=== PATIENT | male | born 1970 | race Caucasian/White ===

== ENCOUNTER 2020-01-31 07:21 | Outpatient (REF) | payer BC, SELFPAY ==
[2020-01-31 11:25] LABS: Hematocrit 44.4 % (42-52); Hemoglobin 15.5 g/dl (14.0-18.0); Mean Corpuscular HGB Conc 34.9 g/dl (31.0-36.0); Mean Corpuscular Hemoglobin 32.1 pg (27.0-33.0); Mean Corpuscular Volume 91.9 fL (80-98); Mean Platelet Volume 11.8 fL (9.4-12.4); Platelet Count 173 X10*3/uL (160-400); Red Blood Count 4.83 X10*6/uL (4.60-5.80); Red Cell Distribution Width 12.6 % (11.0-16.0); White Blood Count 6.3 X10*3/uL (4.8-10.8)
[2020-01-31 11:50] LABS: Cholesterol 210 mg/dL; HDL Cholesterol 37 mg/dL; LDL Cholesterol Calculated 142 mg/dl; Triglycerides 156 mg/dL
[2020-01-31 12:12] LABS: Prostate Specific Antigen Scr 0.53 ng/mL (<0.05-4.0)
== END 2020-01-31 07:22 | disposition home or self-care (01) ==
LOC: HO.HMGCLDS 07:21
PROVIDERS: PCP Internal Medicine; Visit Provider Internal Medicine
DX: Z00.00 Encounter for general adult medical examination without abnormal findings (principal); E78.2 Mixed hyperlipidemia; Z12.5 Encounter for screening for malignant neoplasm of prostate
CPT/HCPCS: 36415; 80061; 84153; 85027

== ENCOUNTER 2020-05-01 08:08 | Outpatient (REF) | payer BC, SELFPAY ==
[2020-05-01 11:00] LABS: Anion Gap 11 (12-20); Blood Urea Nitrogen 16 mg/dL (9-16); Carbon Dioxide 29 mmol/L (22-29); Chloride 104 mmol/L (96-108); Estimated Glomerular Filt Rate 50; Potassium 4.1 mmol/l (3.3-5.1); Sodium 140 mmol/L (135-145)
[2020-05-01 11:17] LABS: Creatinine Urine 101.68 mg/dL; Total Protein Urine Random < 7 mg/dL (<12)
== END 2020-05-01 08:09 | disposition home or self-care (01) ==
LOC: HO.10HDL 08:08
PROVIDERS: Visit Provider Internal Medicine Hypertension Specialist
DX: N03.8 Chronic nephritic syndrome with other morphologic changes (principal)
CPT/HCPCS: 36415; 80051; 82565; 84156; 84520

== ENCOUNTER 2020-06-12 07:36 | Outpatient (REF) | payer BC, SELFPAY ==
[2020-06-12 10:14] LABS: MANUAL DIFF FLAG NO
[2020-06-12 10:19] LABS: Basophils Percent Auto 0.6 % (0-2); Eosinophils Absolute Auto 0.2 X10*3/uL (0.0-0.4); Eosinophils Percent Auto 2.3 % (0-4); Hematocrit 44.1 % (42-52); Hemoglobin 15.4 g/dl (14.0-18.0); Imm Gran Abs Auto 0.03 X10*3/uL (0.00-0.03); Imm Gran Pct Auto 0.5 % (0.0-0.4); Lymphocytes Absolute Auto 1.5 X10*3/uL (1.2-4.9); Lymphocytes Percent Auto 23.9 % (20-40); Mean Corpuscular HGB Conc 34.9 g/dl (31.0-36.0); Mean Corpuscular Hemoglobin 31.6 pg (27.0-33.0); Mean Corpuscular Volume 90.4 fL (80-98); Monocytes Absolute Auto 0.5 X10*3/uL (0.1-1.2); Monocytes Percent Auto 8.3 % (2-11); Neutrophils Absolute Auto 4.1 X10*3/uL (2.0-8.3); Neutrophils Percent Auto 64.4 % (45-73); Platelet Count 180 X10*3/uL (160-400); Red Blood Count 4.88 X10*6/uL (4.60-5.80); Red Cell Distribution Width 12.4 % (11.0-16.0); White Blood Count 6.4 X10*3/uL (4.8-10.8)
[2020-06-12 10:44] LABS: Albumin Level 4.7 g/dL (3.5-5.0); Anion Gap 13 (12-20); Blood Urea Nitrogen 15 mg/dL (9-16); Calcium 9.4 mg/dL (8.4-10.2); Carbon Dioxide 28 mmol/L (22-29); Chloride 100 mmol/L (96-108); Estimated Glomerular Filt Rate 53; Sodium 137 mmol/L (135-145)
[2020-06-12 10:45] LABS: Creatinine Urine 52.37 mg/dL; Total Protein Urine Random < 7 mg/dL (<12)
[2020-06-12 10:53] LABS: Glucose Urine UA NEG (NEG); Leukocyte Esterase Urine NEG (NEG); Nitrite Urine NEG (NEG); Urine Blood NEG (NEG); Urine Ketones NEG (NEG); Urine Protein NEG (NEG-TRACE)
[2020-06-12 10:54] LABS: Appearance Urine CLEAR; Color Urine STRAW
== END 2020-06-12 07:37 | disposition home or self-care (01) ==
LOC: HO.10HDL 07:36
PROVIDERS: Visit Provider Internal Medicine Hypertension Specialist
DX: N28.9 Disorder of kidney and ureter, unspecified (principal); N03.8 Chronic nephritic syndrome with other morphologic changes
CPT/HCPCS: 36415; 80051; 81003; 82040; 82310; 82565; 83735; 84100; 84156; 84520; 85025

== ENCOUNTER 2020-07-17 07:33 | Outpatient (REF) | payer BC, SELFPAY ==
[2020-07-17 10:05] LABS: MANUAL DIFF FLAG NO
[2020-07-17 10:16] LABS: Basophils Percent Auto 0.5 % (0-2); Eosinophils Absolute Auto 0.2 X10*3/uL (0.0-0.4); Eosinophils Percent Auto 3.5 % (0-4); Hematocrit 41.7 % (42-52); Hemoglobin 14.6 g/dl (14.0-18.0); Imm Gran Abs Auto 0.02 X10*3/uL (0.00-0.03); Imm Gran Pct Auto 0.3 % (0.0-0.4); Lymphocytes Absolute Auto 1.5 X10*3/uL (1.2-4.9); Lymphocytes Percent Auto 26.5 % (20-40); Mean Corpuscular Volume 91.4 fL (80-98); Mean Platelet Volume 11.8 fL (9.4-12.4); Monocytes Absolute Auto 0.5 X10*3/uL (0.1-1.2); Monocytes Percent Auto 8.3 % (2-11); Neutrophils Absolute Auto 3.5 X10*3/uL (2.0-8.3); Neutrophils Percent Auto 60.9 % (45-73); Platelet Count 179 X10*3/uL (160-400); Red Blood Count 4.56 X10*6/uL (4.60-5.80); Red Cell Distribution Width 12.5 % (11.0-16.0); White Blood Count 5.8 X10*3/uL (4.8-10.8)
[2020-07-17 10:23] LABS: Glucose Urine UA NEG (NEG); Leukocyte Esterase Urine NEG (NEG); Nitrite Urine NEG (NEG); Specific Gravity - Urine <= 1.005 (1.005-1.025); Urine Blood NEG (NEG); Urine Ketones NEG (NEG); Urine Protein NEG (NEG-TRACE)
[2020-07-17 10:46] LABS: Appearance Urine CLEAR; Color Urine YELLOW
[2020-07-17 10:55] LABS: Albumin Level 4.4 g/dL (3.5-5.0); Anion Gap 16 (12-20); Blood Urea Nitrogen 16 mg/dL (9-16); Calcium 8.9 mg/dL (8.4-10.2); Carbon Dioxide 25 mmol/L (22-29); Chloride 103 mmol/L (96-108); Estimated Glomerular Filt Rate 56; Magnesium 2.2 mg/dL (1.6-2.6); Phosphorus 2.7 mg/dL (2.7-4.5); Potassium 4.1 mmol/L (3.3-5.1); Sodium 140 mmol/L (135-145)
[2020-07-17 11:18] LABS: Creatinine Urine 39.02 mg/dL; Total Protein Urine Random < 7 mg/dL (<12)
== END 2020-07-17 07:34 | disposition home or self-care (01) ==
LOC: HO.10HDL 07:33
PROVIDERS: Visit Provider Internal Medicine Hypertension Specialist
DX: N28.9 Disorder of kidney and ureter, unspecified (principal); N03.8 Chronic nephritic syndrome with other morphologic changes
CPT/HCPCS: 36415; 80051; 81003; 82040; 82310; 82565; 83735; 84100; 84156; 84520; 85025

== ENCOUNTER 2020-11-06 07:15 | Outpatient (REF) | payer BC, SELFPAY ==
[2020-11-06 11:19] LABS: Anion Gap 15 (12-20); Blood Urea Nitrogen 13 mg/dL (9-16); Calcium 9.4 mg/dL (8.4-10.2); Carbon Dioxide 26 mmol/L (22-29); Chloride 103 mmol/L (96-108); Estimated Glomerular Filt Rate 54; Potassium 4.5 mmol/L (3.3-5.1); Sodium 139 mmol/L (135-145)
[2020-11-06 11:45] LABS: Creatinine Urine 49.06 mg/dL; Total Protein Urine Random < 7 mg/dL (<12)
== END 2020-11-06 07:16 | disposition home or self-care (01) ==
LOC: HO.WFDLDS 07:15
PROVIDERS: PCP Internal Medicine; Visit Provider Internal Medicine Hypertension Specialist
DX: N18.1 Chronic kidney disease, stage 1 (principal)
CPT/HCPCS: 36415; 80051; 82310; 82565; 84156; 84520

== ENCOUNTER 2021-01-24 08:34 | Outpatient (REF) | payer BC, SELFPAY ==
[2021-01-24 13:16] LABS: Prostate Specific Antigen 0.48 ng/mL (<0.05-4.0)
[2021-01-24 13:20] LABS: Anion Gap 12 (12-20); Blood Urea Nitrogen 16 mg/dL (9-16); Calcium 9.3 mg/dL (8.4-10.2); Carbon Dioxide 26 mmol/L (22-29); Chloride 105 mmol/L (96-108); Cholesterol 207 mg/dL; Estimated Glomerular Filt Rate 56; HDL Cholesterol 37 mg/dL; LDL Cholesterol Calculated 145 mg/dl; Sodium 139 mmol/L (135-145); Triglycerides 126 mg/dL
[2021-01-24 13:25] LABS: Creatinine Urine 84.31 mg/dL; Protein/Creatinine Ratio, Ur 0.09 (<0.2); Total Protein Urine Random 8 mg/dL (<12)
== END 2021-01-24 08:35 | disposition home or self-care (01) ==
LOC: HO.HMGCLDS 08:34
PROVIDERS: PCP Internal Medicine; Visit Provider Internal Medicine Hypertension Specialist
DX: Z12.5 Encounter for screening for malignant neoplasm of prostate (principal); N18.1 Chronic kidney disease, stage 1
CPT/HCPCS: 36415; 80051; 80061; 82310; 82565; 84153; 84156; 84520

== ENCOUNTER 2021-06-18 07:51 | Outpatient (REF) | payer BC, SELFPAY ==
[2021-06-18 10:47] LABS: MANUAL DIFF FLAG NO
[2021-06-18 10:49] LABS: Basophils Percent Auto 0.6 % (0-2); Eosinophils Absolute Auto 0.3 X10*3/uL (0.0-0.4); Eosinophils Percent Auto 4.3 % (0-4); Hematocrit 42.5 % (42.0-52.0); Hemoglobin 14.5 g/dl (14.0-18.0); Imm Gran Abs Auto 0.02 X10*3/uL (0.00-0.03); Imm Gran Pct Auto 0.3 % (0.0-0.4); Lymphocytes Absolute Auto 1.6 X10*3/uL (1.2-4.9); Lymphocytes Percent Auto 24.9 % (20-40); Mean Corpuscular HGB Conc 34.1 g/dl (31.0-36.0); Mean Corpuscular Hemoglobin 31.4 pg (27.0-33.0); Mean Platelet Volume 11.9 fL (9.4-12.4); Monocytes Absolute Auto 0.7 X10*3/uL (0.1-1.2); Monocytes Percent Auto 10.4 % (2-11); Neutrophils Absolute Auto 3.8 x10*3/uL (2.0-8.3); Neutrophils Percent Auto 59.5 % (45-73); Platelet Count 171 X10*3/uL (160-400); Red Blood Count 4.62 X10*6/uL (4.60-5.80); Red Cell Distribution Width 12.8 % (11.0-16.0); White Blood Count 6.4 X10*3/uL (4.8-10.8)
[2021-06-18 11:06] LABS: Albumin Level 4.3 g/dL (3.5-5.0); Anion Gap 10 (12-20); Blood Urea Nitrogen 14 mg/dL (9-16); Calcium 9.3 mg/dL (8.4-10.2); Carbon Dioxide 29 mmol/L (22-29); Chloride 105 mmol/L (96-108); Estimated Glomerular Filt Rate 53; Magnesium 1.9 mg/dL (1.6-2.6); Phosphorus 2.9 mg/dL (2.7-4.5); Potassium 4.7 mmol/L (3.3-5.1); Sodium 139 mmol/L (135-145)
[2021-06-18 11:22] LABS: Appearance Urine CLEAR; Color Urine STRAW; Glucose Urine UA NEG (NEG); Leukocyte Esterase Urine NEG (NEG); Nitrite Urine NEG (NEG); Specific Gravity - Urine <= 1.005 (1.005-1.025); Urine Blood NEG (NEG); Urine Ketones NEG (NEG); Urine Protein NEG (NEG-TRACE)
[2021-06-18 12:23] LABS: Creatinine Urine 41.07 mg/dL; Total Protein Urine Random < 7 mg/dL (<12)
[2021-06-18 12:58] LABS: Renal w Reflex Lab Use Only Order verified
== END 2021-06-18 07:52 | disposition home or self-care (01) ==
LOC: HO.WFDLDS 07:51
PROVIDERS: Visit Provider Internal Medicine Hypertension Specialist
DX: N28.9 Disorder of kidney and ureter, unspecified (principal); N03.8 Chronic nephritic syndrome with other morphologic changes
CPT/HCPCS: 36415; 80051; 81003; 82040; 82310; 82565; 83735; 84100; 84156; 84520; 85025

== ENCOUNTER 2022-01-07 07:32 | Outpatient (REF) | payer BC, SELFPAY ==
[2022-01-07 12:05] LABS: Anion Gap 14 (12-20); Blood Urea Nitrogen 13 mg/dL (9-16); Calcium 9.7 mg/dL (8.4-10.2); Carbon Dioxide 28 mmol/L (22-29); Chloride 104 mmol/L (96-108); Estimated Glomerular Filt Rate 51; Potassium 4.5 mmol/L (3.3-5.1); Sodium 141 mmol/L (135-145)
[2022-01-07 12:25] LABS: Creatinine Urine 105.98 mg/dL; Total Protein Urine Random < 7 mg/dL (<12)
== END 2022-01-07 07:33 | disposition home or self-care (01) ==
LOC: HO.WFDLDS 07:32
PROVIDERS: Visit Provider Internal Medicine Hypertension Specialist
DX: N03.9 Chronic nephritic syndrome with unspecified morphologic changes (principal)
CPT/HCPCS: 36415; 80051; 82310; 82565; 84156; 84520

== ENCOUNTER 2022-01-27 08:59 | Outpatient (REF) | payer BC, SELFPAY ==
[2022-01-27 11:25] LABS: MANUAL DIFF FLAG NO
[2022-01-27 11:42] LABS: Basophils Absolute Auto 0.1 X10*3/uL (0.0-0.2); Basophils Percent Auto 0.8 % (0-2); Eosinophils Absolute Auto 0.3 X10*3/uL (0.0-0.4); Eosinophils Percent Auto 4.1 % (0-4); Hematocrit 43.9 % (42.0-52.0); Hemoglobin 15.3 g/dl (14.0-18.0); Imm Gran Abs Auto 0.02 X10*3/uL (0.00-0.03); Imm Gran Pct Auto 0.3 % (0.0-0.4); Lymphocytes Absolute Auto 1.6 X10*3/uL (1.2-4.9); Lymphocytes Percent Auto 25.3 % (20-40); Mean Corpuscular HGB Conc 34.9 g/dl (31.0-36.0); Mean Corpuscular Hemoglobin 31.7 pg (27.0-33.0); Mean Corpuscular Volume 91.1 fL (80.0-98.0); Mean Platelet Volume 11.8 fL (9.4-12.4); Monocytes Absolute Auto 0.6 X10*3/uL (0.1-1.2); Monocytes Percent Auto 9.2 % (2-11); Neutrophils Absolute Auto 3.8 x10*3/uL (2.0-8.3); Neutrophils Percent Auto 60.3 % (45-73); Platelet Count 171 X10*3/uL (160-400); Red Blood Count 4.82 X10*6/uL (4.60-5.80); Red Cell Distribution Width 12.2 % (11.0-16.0); White Blood Count 6.3 X10*3/uL (4.8-10.8)
[2022-01-27 12:13] LABS: Alanine Aminotransferase 18 U/L (0-40); Albumin Level 4.7 g/dL (3.5-5.0); Alkaline Phosphatase 53 U/L (39-117); Anion Gap 12 (12-20); Aspartate Amino Transferase 20 U/L (5-37); Bilirubin Total 1.3 mg/dL (0.0-1.0); Blood Urea Nitrogen 15 mg/dL (9-16); Calcium 9.6 mg/dL (8.4-10.2); Carbon Dioxide 30 mmol/L (22-29); Chloride 103 mmol/L (96-108); Cholesterol 207 mg/dL; Estimated Glomerular Filt Rate 50; Glucose Fasting 98 mg/dL (60-99); HDL Cholesterol 34 mg/dL; LDL Cholesterol Calculated 138 mg/dl; Potassium 4.6 mmol/L (3.3-5.1); Sodium 140 mmol/L (135-145); Triglycerides 176 mg/dL
[2022-01-27 12:36] LABS: PSA,Total (Free>4and<10) 0.49 ng/mL (0.00-4.00)
== END 2022-01-27 09:00 | disposition home or self-care (01) ==
LOC: HO.HMGCLDS 08:59
PROVIDERS: PCP Internal Medicine; Visit Provider Internal Medicine
DX: Z00.00 Encounter for general adult medical examination without abnormal findings (principal); Z12.5 Encounter for screening for malignant neoplasm of prostate
CPT/HCPCS: 36415; 80053; 80061; 84153; 85025

== ENCOUNTER 2022-03-18 07:20 | Outpatient (REF) | payer BC, SELFPAY ==
[2022-03-18 11:51] LABS: Anion Gap 14 (12-20); Blood Urea Nitrogen 12 mg/dL (9-16); Carbon Dioxide 26 mmol/L (22-29); Chloride 104 mmol/L (96-108); Estimated Glomerular Filt Rate 55; Glucose Random 101 mg/dL (60-115); Potassium 4.4 mmol/L (3.3-5.1); Sodium 140 mmol/L (135-145)
[2022-03-18 11:52] LABS: Anion Gap 12 (12-20); Blood Urea Nitrogen 11 mg/dL (9-16); Carbon Dioxide 26 mmol/L (22-29); Chloride 105 mmol/L (96-108); Estimated Glomerular Filt Rate 56; Potassium 4.3 mmol/L (3.3-5.1); Sodium 139 mmol/L (135-145)
== END 2022-03-18 07:21 | disposition home or self-care (01) ==
LOC: HO.WFDLDS 07:20
PROVIDERS: Absent Provider Internal Medicine Hypertension Specialist; Visit Provider Internal Medicine
DX: N03.9 Chronic nephritic syndrome with unspecified morphologic changes (principal); Z87.448 Personal history of other diseases of urinary system
CPT/HCPCS: 36415; 80048; 80051; 82310; 82565; 84520

== ENCOUNTER 2022-07-15 07:18 | Outpatient (REF) | payer BC, SELFPAY ==
[2022-07-15 12:35] LABS: Anion Gap 11 (12-20); Blood Urea Nitrogen 14 mg/dL (9-16); Carbon Dioxide 28 mmol/L (22-29); Chloride 106 mmol/L (96-108); Estimated Glomerular Filt Rate 55; Potassium 4.3 mmol/L (3.3-5.1); Sodium 141 mmol/L (135-145)
== END 2022-07-15 07:19 | disposition home or self-care (01) ==
LOC: HO.WFDLDS 07:18
PROVIDERS: Visit Provider Internal Medicine Hypertension Specialist
DX: N03.9 Chronic nephritic syndrome with unspecified morphologic changes (principal)
CPT/HCPCS: 36415; 80051; 82310; 82565; 84520

== ENCOUNTER 2023-01-27 07:18 | Outpatient (REF) | payer BC, SELFPAY ==
[2023-01-27 11:13] LABS: MANUAL DIFF FLAG NO
[2023-01-27 11:30] LABS: Basophils Absolute Auto 0.1 X10*3/uL (0.0-0.2); Basophils Percent Auto 0.9 % (0-2); Eosinophils Absolute Auto 0.3 X10*3/uL (0.0-0.4); Eosinophils Percent Auto 4.2 % (0-4); Hematocrit 42.8 % (42.0-52.0); Imm Gran Abs Auto 0.02 X10*3/uL (0.00-0.03); Imm Gran Pct Auto 0.3 % (0.0-0.4); Mean Corpuscular Hemoglobin 32.5 pg (27.0-33.0); Mean Corpuscular Volume 92.6 fL (80.0-98.0); Mean Platelet Volume 12.4 fL (9.4-12.4); Monocytes Absolute Auto 0.7 X10*3/uL (0.1-1.2); Neutrophils Percent Auto 56.6 % (45-73); Platelet Count 168 X10*3/uL (160-400); Red Blood Count 4.62 X10*6/uL (4.60-5.80); Red Cell Distribution Width 12.7 % (11.0-16.0)
[2023-01-27 11:56] LABS: Alanine Aminotransferase 17 U/L (0-40); Albumin Level 4.4 g/dL (3.5-5.0); Alkaline Phosphatase 53 U/L (39-117); Anion Gap 11 (12-20); Aspartate Amino Transferase 21 U/L (5-37); Bilirubin Total 1.4 mg/dL (0.0-1.0); Blood Urea Nitrogen 10 mg/dL (9-16); Calcium 9.3 mg/dL (8.4-10.2); Carbon Dioxide 29 mmol/L (22-29); Chloride 103 mmol/L (96-108); Cholesterol 177 mg/dL (<200); Estimated Glomerular Filt Rate 56; Glucose Fasting 95 mg/dL (60-99); HDL Cholesterol 35 mg/dL (>40); LDL Cholesterol Calculated 113 mg/dL (<100); Potassium 4.1 mmol/L (3.3-5.1); Sodium 139 mmol/L (135-145); Total Protein 6.9 g/dL (6.5-8.0); Triglycerides 146 mg/dL (<150)
[2023-01-27 12:07] LABS: PSA,Total (Free>4and<10) 0.58 ng/mL (0.00-4.00)
== END 2023-01-27 07:19 | disposition home or self-care (01) ==
LOC: HO.WFDLDS 07:18
PROVIDERS: Visit Provider Internal Medicine
DX: Z00.00 Encounter for general adult medical examination without abnormal findings (principal); Z12.5 Encounter for screening for malignant neoplasm of prostate
CPT/HCPCS: 36415; 80053; 80061; 84153; 85025

== ENCOUNTER 2023-02-03 07:50 | Outpatient (AMB) | payer BC, SELFPAY ==
--- NOTE | 2023-02-03 07:51 | MHC.PC.OV ---
Vital Signs 02/03/23 08:03 Height 5 ft 4 in Weight 165 lb BMI 28.3 BP 152/80 H Blood Pressure Location Lt brachial Position Sitting Pulse 49 L Pulse Source Pulse Oximeter Pulse Oximetry (%) 97 Oxygen Delivery Method Room Air Intake Visit Reasons: Annual PE Intake Note: Pt is here today for PE. Allergies No Known Allergies [No Known Allergies*] Allergy (Unverified 02/03/23 08:04) Tobacco use date assessed: 02/03/23 Dental Screening Dental Screen Date: 02/03/23 Did you have a dental visit in the last 12 months?: Yes Did you have a dental problem in the last 6 months where you did not have access to dental care?: No Was dental information given to patient?: Patient has dentist HPI Annual PE HPI Details Patient presents for physical PFSH Medical History Normal colonoscopy Annual physical exam Family History Father No problems noted. Mother No problems noted. Social History Household Members Other:: , 2 sons Housing: House Patient Tobacco Use Status: Never used Tobacco e-Cigarette/Vaping Use: Never Used Current occupational status: employed Cognitive needs: No Hearing needs: No Vision needs: Yes Questionnaire PHQ-9 Over the last 2 weeks, how often have you been bothered by any of the following problems? 1. Little interest or pleasure in doing things: not at all 2. Feeling down, depressed, or hopeless: not at all 3. Trouble falling or staying asleep, or sleeping too much: not at all 4. Feeling tired or having little energy: not at all 5. Poor appetite or overeating: not at all 6. Feeling bad about yourself - or that you are a failure or have let yourself or your family down: not at all 7. Trouble concentrating on things, such as reading the newspaper or watching television: not at all 8. Moving or speaking so slowly that other people could have noticed. Or the opposite - being so fidgety or restless that you have been moving around a lot more than usual: not at all 9. Thoughts that you would be better off or of hurting yourself in some way: not at all Total score: 0 Depression Screening Interpretation: Negative Depression Screening Done: Yes Source: Developed by Drs. Surya Gannon, Zee Harden, Roldan Martinez and colleagues, with an educational zak from [employer]. Thrive Questionnaire Date Thrive assessed: 02/25/22 I am a: Patient What is your living situation today?: I have a steady place to live Within the past 12 months, did the food you bought not last and you didn't have the money to get more?: Never true Within the past 12 months, did you worry whether your food would run out before you got money to buy more?: Never true Do you have trouble paying for medicines?: No Do you have trouble getting transportation to medical appointments?: No Do you have trouble paying your heating and electricity bill?: No Do you have trouble taking care of your child, family member or friend?: No Do you have trouble with day-to-day activities such as bathing, preparing meals, shopping, managing finances, etc.?: No Are you currently unemployed and looking for a job?: No Are you interested in more education?: No Please select the resources that you would like help with: None Currently or been in a relationship where the following occur: no concerns reported AUDIT C Alcohol Use Questionnaire (AUDIT-C) 1. How often do you have a drink containing alcohol?: Monthly or less 2. How many drinks containing alcohol do you have on a typical day when you are drinking?: 1 or 2 3. How often do you have six or more drinks on one occasion?: Never Total Score: 1 PADMA-7 AMB Questionnaire PADMA-7 Date PADMA - 7 assessed: 02/03/23 Feeling nervous, anxious, or on edge: 0 = Not at all Not being able to stop or control worryin = Not at all Worrying too much about different things: 0 = Not at all Trouble relaxin = Not at all Being so restless that it is hard to sit still: 0 = Not at all Becoming easily annoyed or irritable: 0 = Not at all Feeling afraid as if something awful might happen: 0 = Not at all Total PADMA-7 score (0-4 normal; 5-9 mild; 10-14 moderate; 15-21 severe): 0 Source: Developed by Drs. Surya Gannon, Zee Harden, Roldan Martinez and colleagues, with an educational zak from [employer]. Review of Systems Const All systems reviewed & are unremarkable except as noted in HPI and below Reports no additional complaints Eyes Reports no additional complaints ENT Reports no additional complaints Card Reports no additional complaints Resp Reports no additional complaints GI Reports no additional complaints Reports no additional complaints Physical exam (Primary Care) Vital Signs: Last Vital Signs Pulse 49 L 02/03/23 08:03 BP 152/80 H 02/03/23 08:03 Pulse Ox 97 02/03/23 08:03 Oxygen Delivery Method Room Air 02/03/23 08:03 BMI result Body Mass Index 28.3 Tobacco/Smoking Status: Tobacco use Status Tobacco use date assessed 02/03/23 02/03/23 08:07 Patient Tobacco Use Status Never used Tobacco 02/03/23 08:07 e-Cigarette/Vaping Use Never Used 02/03/23 07:51 PHQ-9: PHQ-9 Score PHQ-9: Total score 0 02/03/23 08:08 Depression Screening Interpretation: Negative Thrive Assessment: Date of Thrive Assessment Date Thrive assessed 02/25/22 02/03/23 08:08 Currently or been in a relationship where the following occur: no concerns reported Const General: no acute distress HENMT Ears: hearing grossly normal bilaterally Mouth: Normal oral and palatal mucosa present Throat: Yes posterior oropharynx normal Eyes General: appearance normal, both eyes and all related structures Neck Neck: Yes no lymphadenopathy and Yes supple Resp Effort & Inspection: normal respiratory effort Auscultation: clear to auscultation bilaterally Cardio Rhythm: regular rhythm Heart sounds: S1 normal heart sound present and S2 normal heart sound present GI Inspection: Yes normal to inspection Palpation (GI): Soft to palpation Percussion: Yes normal to percussion Auscultation: normal bowel sounds Assessment and Plan Assessment & Plan (1) Annual physical exam: Code(s): Z00.00 - Encounter for general adult medical examination without abnormal findings Plan: Well-balanced diet regular exercise discussed with the patient. (2) Elevated blood pressure reading in office without diagnosis of hypertension: Code(s): R03.0 - Elevated blood-pressure reading, without diagnosis of hypertension Plan: Low-sodium diet regular physical activity discussed with the patient, follow-up in 1 month for blood pressure check Orders: Orders UA and rflx microscopic Today Z87.448 - Personal history of other diseases of urinary system Coding Level of Care Code Est Pt Prev Care 40-64y(81393) Diagnoses Annual physical exam Z00.00 Elevated blood pressure reading in office without diagnosis of hypertension R03.0
[2023-02-03 08:03] VITALS: BP 152/80; PULSE 49; O2SAT 97; BMI 28.3
== END 2023-02-03 08:31 | disposition home or self-care (01) ==
PROVIDERS: Visit Provider Internal Medicine
DX: Z00.00 Encounter for general adult medical examination without abnormal findings (principal); R03.0 Elevated blood-pressure reading, without diagnosis of hypertension
CPT/HCPCS: 99396

== ENCOUNTER 2023-02-03 08:32 | Outpatient (REF) | payer BC, SELFPAY | END 2023-02-03 08:33 | disposition home or self-care (01) | LOC: HO.HMGCLDS 08:32 | PROVIDERS: PCP Internal Medicine; Visit Provider Internal Medicine | DX: Z87.448 Personal history of other diseases of urinary system (principal) | CPT/HCPCS: 81003 ==

== ENCOUNTER 2023-03-03 10:00 | Outpatient (AMB) | payer BC, SELFPAY ==
--- NOTE | 2023-03-03 10:00 | MHC.PC.OV ---
Vital Signs 03/03/23 10:01 Height 5 ft 4 in Weight 164 lb BMI 28.1 BP 140/74 H Blood Pressure Location Lt brachial Position Sitting Pulse 52 Pulse Source Pulse Oximeter Pulse Oximetry (%) 98 Oxygen Delivery Method Room Air Intake Visit Reasons: 4W follow up Intake Note: Pt is here today for a follow up visit on BP. Allergies No Known Allergies [No Known Allergies*] Allergy (Unverified 03/03/23 10:03) Medication List - Last Reconciled 03/03/23 by Maribel Garner MD No Known Home Meds Tobacco use date assessed: 02/03/23 HPI 4W follow up HPI Details Patient presents for the follow-up of elevated blood pressure. He has been under lot of stress related to his work and personal. Patient denies depression anxiety insomnia but has not been exercising regularly. He denies headaches chest pain or shortness of breath. PFS Medical History Normal colonoscopy Annual physical exam Family History Father No problems noted. Mother No problems noted. Social History Household Members Other:: , 2 sons Housing: House Patient Tobacco Use Status: Never used Tobacco e-Cigarette/Vaping Use: Never Used Current occupational status: employed Cognitive needs: No Hearing needs: No Vision needs: Yes Questionnaire Thrive Questionnaire Date Thrive assessed: 02/25/22 PADMA-7 AMB Questionnaire PADMA-7 Date PADMA - 7 assessed: 02/03/23 Source: Developed by Drs. Surya Gannon, Zee Harden, Roldan Martinez and colleagues, with an educational zak from [employer]. Review of Systems Const All systems reviewed & are unremarkable except as noted in HPI and below Reports no additional complaints Eyes Reports no additional complaints ENT Reports no additional complaints Card Reports no additional complaints Resp Reports no additional complaints GI Reports no additional complaints Physical exam (Primary Care) Vital Signs: Last Vital Signs Pulse 52 03/03/23 10:01 BP 140/74 H 03/03/23 10:01 Pulse Ox 98 03/03/23 10:01 Oxygen Delivery Method Room Air 03/03/23 10:01 BMI result Body Mass Index 28.1 Tobacco/Smoking Status: Tobacco use Status Tobacco use date assessed 02/03/23 03/03/23 10:04 Patient Tobacco Use Status Never used Tobacco 03/03/23 10:04 e-Cigarette/Vaping Use Never Used 03/03/23 10:04 Thrive Assessment: Date of Thrive Assessment Date Thrive assessed 02/25/22 03/03/23 10:04 Const General: no acute distress HENMT Head: Yes normal to inspection Throat: Yes posterior oropharynx normal Neck Neck: Yes supple Resp Effort & Inspection: normal respiratory effort Auscultation: clear to auscultation bilaterally Cardio Rhythm: regular rhythm Heart sounds: S1 normal heart sound present and S2 normal heart sound present Assessment and Plan Assessment & Plan (1) HTN (hypertension): Code(s): I10 - Essential (primary) hypertension Plan: Low sodium diet increase physical activity discussed with the patient. lisinopril 5 mg daily will be started patient will follow-up in 2 months for blood pressure check (2) History of glomerulonephritis: Comment: acute, nephrotic syndrome, 2017 Code(s): Z87.448 - Personal history of other diseases of urinary system Medications: New lisinopril 5 mg PO DAILY 90 tabs 0RF Coding Level of Care Code Est Pt Level 3 (12935) Diagnoses HTN (hypertension) I10 History of glomerulonephritis Z87.448
[2023-03-03 10:01] VITALS: BP 140/74; PULSE 52; O2SAT 98; BMI 28.1
== END 2023-03-03 10:47 | disposition home or self-care (01) ==
PROVIDERS: PCP Internal Medicine; Visit Provider Internal Medicine
DX: I10 Essential (primary) hypertension (principal); Z87.448 Personal history of other diseases of urinary system
CPT/HCPCS: 99213

== ENCOUNTER 2023-03-31 09:39 | Outpatient (REF) | payer BC, SELFPAY ==
[2023-03-31 11:21] LABS: Appearance Urine Clear; Color Urine Yellow; Glucose Urine UA Negative (Negative); Leukocyte Esterase Urine Negative (Negative); Nitrite Urine Negative (Negative); Urine Blood Negative (Negative); Urine Ketones Negative (Negative); Urine Protein Negative (Neg-Trace)
[2023-03-31 11:27] LABS: Bacteria Urine None Seen (None Seen); Hyaline Casts Urine 0-2 /LPF (0-2); RBC Urine 0-2 /HPF (0-2); Squamous Epithelial Cell Urine 0-2 /HPF (0-2); WBC Urine 0-5 /HPF (0-5)
[2023-03-31 11:33] LABS: Anion Gap 10 (12-20); Blood Urea Nitrogen 16 mg/dL (9-16); Calcium 9.2 mg/dL (8.4-10.2); Carbon Dioxide 29 mmol/L (22-29); Chloride 104 mmol/L (96-108); Estimated Glomerular Filt Rate 54; Potassium 4.3 mmol/L (3.3-5.1); Sodium 139 mmol/L (135-145)
[2023-03-31 12:14] LABS: Creatinine Urine 87.71 mg/dL; Microalbum/Creatinine Ratio Ur 13.6 ug/mg cr (<30); Protein/Creatinine Ratio, Ur 0.09 (<0.2); Total Protein Urine Random 8 mg/dL (<12)
== END 2023-03-31 09:40 | disposition home or self-care (01) ==
LOC: HO.WFDLDS 09:39
PROVIDERS: Visit Provider Internal Medicine Nephrology
DX: N18.31 Chronic kidney disease, stage 3a (principal)
CPT/HCPCS: 36415; 80051; 81001; 82043; 82310; 82565; 82570; 84156; 84520

== ENCOUNTER 2023-04-01 15:59 | Outpatient (AMB) | payer BC, SELFPAY ==
--- NOTE | 2023-04-01 16:00 | HO.NEPHOV_ITS ---
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 Mother No problems noted. Social History Household Members Other:: , 2 sons Housing: House Patient Tobacco Use Status: Never used Tobacco e-Cigarette/Vaping Use: Never Used Current occupational status: employed Cognitive needs: No Hearing needs: No Vision needs: Yes Vital Signs 04/01/23 16:01 Height 5 ft 4 in Weight 168 lb BMI 28.8 BP 120/70 Blood Pressure Location Rt brachial Position Sitting Pulse 62 Pulse Source Pulse Oximeter Pulse Oximetry (%) 96 Oxygen Delivery Method Room Air Physical Exam Vital Signs: Last Vital Signs Pulse 62 04/01/23 16:01 BP 120/70 04/01/23 16:01 Pulse Ox 96 04/01/23 16:01 Oxygen Delivery Method Room Air 04/01/23 16:01 BMI result Body Mass Index 28.8 Const General: comfortable Nutritional Appearance: well nourished Orientation/consciousness: patient oriented x3 HEENT Head: No normal to inspection Mouth: moist mucous membranes Neck Neck: Yes supple and Yes no JVD Resp Auscultation: clear to auscultation bilaterally, no rales and rub present Cardio Jugular venous distension: no JVD Palpation: no palpable S3 and no palpable S4 Heart sounds: no rubs GI Palpation (GI): Soft to palpation and nontender Percussion: No Fluid wave present General: Yes no CVA tenderness Back/Spine/Pelvis Back: no CVA tenderness Skin General skin exam: no rashes or lesions noted Neuro General: patient oriented x3 Extrem General: Yes no pedal edema and No clubbing Assessment & Plan Assessment & Plan (1) Proteinuria: Code(s): R80.9 - Proteinuria, unspecified (2) HTN (hypertension): Code(s): I10 - Essential (primary) hypertension Plan Middle aged man with Minimal change disease in remission Renal function is normal NO proteinuria Creatinine is stable at 1.33 BP well controlled Keep Lisinopril for renal protection Monitor Creatinine and urine protein excretion Orders: Orders Electrolytes 6 Months I10 - Essential (primary) hypertension, R80.9 - Proteinuria, unspecified Creatinine Urine 6 Months I10 - Essential (primary) hypertension, R80.9 - Proteinuria, unspecified Total Protein Urine Random 6 Months I10 - Essential (primary) hypertension, R80.9 - Proteinuria, unspecified Blood Urea Nitrogen 6 Months I10 - Essential (primary) hypertension, R80.9 - Proteinuria, unspecified Creatinine 6 Months I10 - Essential (primary) hypertension, R80.9 - Proteinuria, unspecified Calcium 6 Months I10 - Essential (primary) hypertension, R80.9 - Proteinuria, unspecified Sodium Urine Random 6 Months I10 - Essential (primary) hypertension, R80.9 - Proteinuria, unspecified Coding Level of Care Code Est Pt Level 3 (39635) Diagnoses Proteinuria R80.9 HTN (hypertension) I10 Results Reviewed Results Reviewed: U PCR 0.09 Nephrology Results: Hgb 15.0 g/dl (14.0-18.0) 01/27/23 WBC 7.0 X10*3/uL (4.8-10.8) 01/27/23 Plt Count 168 X10*3/uL (160-400) 01/27/23 Sodium 139 mmol/L (135-145) 03/31/23 Potassium 4.3 mmol/L (3.3-5.1) 03/31/23 Chloride 104 mmol/L (96-108) 03/31/23 Carbon Dioxide 29 mmol/L (22-29) 03/31/23 BUN 16 mg/dL (9-16) 03/31/23 Creatinine 1.36 mg/dL (0.5-1.4) 03/31/23 Calcium 9.2 mg/dL (8.4-10.2) 03/31/23 Phosphorus 2.9 mg/dL (2.7-4.5) 06/18/21 Urine Protein Negative mg/dL (Neg-Trace) 03/31/23 Urine Creatinine 87.71 mg/dL 03/31/23 Protein/Creatinin Ratio 0.09 (<0.2) 03/31/23
[2023-04-01 16:01] VITALS: BP 120/70; PULSE 62; O2SAT 96; BMI 28.8
== END 2023-04-01 16:17 | disposition home or self-care (01) ==
PROVIDERS: PCP Internal Medicine; Visit Provider Internal Medicine Hypertension Specialist
DX: R80.9 Proteinuria, unspecified (principal); I10 Essential (primary) hypertension
CPT/HCPCS: 99213

== ENCOUNTER → 2023-04-01 15:59 | Outpatient (BNVA) | payer BC, SELFPAY | PROVIDERS: PCP Internal Medicine; Visit Provider Internal Medicine Hypertension Specialist ==

== ENCOUNTER 2023-05-05 10:50 | Outpatient (AMB) | payer BC, SELFPAY ==
[2023-05-05 10:56] VITALS: BP 118/68; PULSE 51; O2SAT 97; BMI 28.3
--- NOTE | 2023-05-05 10:56 | A.OFFPC_ITS ---
Vital Signs 05/05/23 10:56 Height 5 ft 4 in Weight 165 lb BMI 28.3 BP 118/68 Blood Pressure Location Lt brachial Position Sitting Pulse 51 Pulse Source Pulse Oximeter Pulse Oximetry (%) 97 Oxygen Delivery Method Room Air Intake Visit Reasons: 2 month fu Intake Note: Pt is here today for 2 months follow up on BP. Allergies No Known Allergies [No Known Allergies*] Allergy (Verified 05/05/23 11:07) Medication List - Last Reconciled 05/05/23 by Maribel Garner MD lisinopril 5 mg PO DAILY Tobacco use date assessed: 05/05/23 Dental Screening Dental Screen Date: 05/05/23 Did you have a dental visit in the last 12 months?: Yes Did you have a dental problem in the last 6 months where you did not have access to dental care?: No Was dental information given to patient?: Patient has dentist HPI 2 month fu HPI Details Patient presents for the follow-up of hypertension. He has been tolerating lisinopril well. [facility] Medical History (Updated 05/05/23 @ 16:04 by Maribel Garner MD) Normal colonoscopy Annual physical exam Family History Father No problems noted. Mother No problems noted. Social History Household Members Other:: , 2 sons Housing: House Patient Tobacco Use Status: Never used Tobacco e-Cigarette/Vaping Use: Never Used Current occupational status: employed Cognitive needs: No Hearing needs: No Vision needs: Yes Questionnaire PHQ-9 Over the last 2 weeks, how often have you been bothered by any of the following problems? 1. Little interest or pleasure in doing things: not at all 2. Feeling down, depressed, or hopeless: not at all 3. Trouble falling or staying asleep, or sleeping too much: not at all 4. Feeling tired or having little energy: not at all 5. Poor appetite or overeating: not at all 6. Feeling bad about yourself - or that you are a failure or have let yourself or your family down: not at all 7. Trouble concentrating on things, such as reading the newspaper or watching television: not at all 8. Moving or speaking so slowly that other people could have noticed. Or the opposite - being so fidgety or restless that you have been moving around a lot more than usual: not at all 9. Thoughts that you would be better off or of hurting yourself in some way: not at all Total score: 0 Depression Screening Interpretation: Negative Depression Screening Done: Yes Source: Developed by Drs. Surya Gannon, Zee Harden, Roldan Martinez and colleagues, with an educational zak from [employer]. Thrive Questionnaire Date Thrive assessed: 05/05/23 I am a: Patient What is your living situation today?: I have a steady place to live Within the past 12 months, did the food you bought not last and you didn't have the money to get more?: Never true Within the past 12 months, did you worry whether your food would run out before you got money to buy more?: Never true Do you have trouble paying for medicines?: No Do you have trouble getting transportation to medical appointments?: No Do you have trouble paying your heating and electricity bill?: No Do you have trouble taking care of your child, family member or friend?: No Do you have trouble with day-to-day activities such as bathing, preparing meals, shopping, managing finances, etc.?: No Are you currently unemployed and looking for a job?: No Are you interested in more education?: No Please select the resources that you would like help with: None Currently or been in a relationship where the following occur: no concerns reported AUDIT C Alcohol Use Questionnaire (AUDIT-C) 1. How often do you have a drink containing alcohol?: Monthly or less 2. How many drinks containing alcohol do you have on a typical day when you are drinking?: 1 or 2 3. How often do you have six or more drinks on one occasion?: Never Total Score: 1 PADMA-7 AMB Questionnaire PADMA-7 Date PADMA - 7 assessed: 05/05/23 Feeling nervous, anxious, or on edge: 0 = Not at all Not being able to stop or control worryin = Not at all Worrying too much about different things: 0 = Not at all Trouble relaxin = Not at all Being so restless that it is hard to sit still: 0 = Not at all Becoming easily annoyed or irritable: 0 = Not at all Feeling afraid as if something awful might happen: 0 = Not at all Total PADMA-7 score (0-4 normal; 5-9 mild; 10-14 moderate; 15-21 severe): 0 Source: Developed by Drs. Surya Gannon, Zee Harden, Roldan Martinez and colleagues, with an educational zak from [employer]. Physical exam (Primary Care) Vital Signs: Last Vital Signs Pulse 51 05/05/23 10:56 BP 118/68 05/05/23 10:56 Pulse Ox 97 05/05/23 10:56 Oxygen Delivery Method Room Air 05/05/23 10:56 BMI result Body Mass Index 28.3 Tobacco/Smoking Status: Tobacco use Status Tobacco use date assessed 05/05/23 05/05/23 11:10 Patient Tobacco Use Status Never used Tobacco 05/05/23 11:10 e-Cigarette/Vaping Use Never Used 05/05/23 10:57 PHQ-9: PHQ-9 Score PHQ-9: Total score 0 05/05/23 11:57 Depression Screening Interpretation: Negative Thrive Assessment: Date of Thrive Assessment Date Thrive assessed 05/05/23 05/05/23 11:11 Currently or been in a relationship where the following occur: no concerns reported Const General: no acute distress HENMT Head: Yes normal to inspection Ears: hearing grossly normal bilaterally Face and sinus: Yes normal facial exam Eyes General: appearance normal, both eyes and all related structures Neck Neck: Yes no lymphadenopathy and Yes supple Resp Effort & Inspection: normal respiratory effort Auscultation: clear to auscultation bilaterally Cardio Rhythm: regular rhythm Heart sounds: S1 normal heart sound present and S2 normal heart sound present GI Inspection: Yes normal to inspection Palpation (GI): Soft to palpation Percussion: Yes normal to percussion Auscultation: normal bowel sounds Assessment and Plan Assessment & Plan (1) HTN (hypertension): Code(s): I10 - Essential (primary) hypertension Plan: Continue Lisinopril (2) Annual physical exam: Code(s): Z00.00 - Encounter for general adult medical examination without abnormal findings (3) History of glomerulonephritis: Comment: acute, nephrotic syndrome, 2017, follow-up with Nephrology every 6 months Code(s): Z87.448 - Personal history of other diseases of urinary system Orders: Orders Comprehensive Loco. Panel Fast 10 Months I10 - Essential (primary) hypertension, R80.9 - Proteinuria, unspecified, Z00.00 - Encounter for general adult medical examination without abnormal findings Complete Blood Count Auto Diff 10 Months I10 - Essential (primary) hypertension, R80.9 - Proteinuria, unspecified, Z00.00 - Encounter for general adult medical examination without abnormal findings Lipid Panel 10 Months I10 - Essential (primary) hypertension, R80.9 - Proteinuria, unspecified, Z00.00 - Encounter for general adult medical examination without abnormal findings PSA,Total (Free>4and<10) 10 Months I10 - Essential (primary) hypertension, R80.9 - Proteinuria, unspecified, Z00.00 - Encounter for general adult medical examination without abnormal findings Medications: Refilled lisinopril 5 mg PO DAILY 90 tabs 3RF Coding Level of Care Code Est Pt Level 3 (39713) Diagnoses HTN (hypertension) I10 Annual physical exam Z00.00 History of glomerulonephritis Z87.112
== END 2023-05-05 13:06 | disposition home or self-care (01) ==
PROVIDERS: PCP Internal Medicine; Visit Provider Internal Medicine
DX: I10 Essential (primary) hypertension (principal); Z00.00 Encounter for general adult medical examination without abnormal findings; Z87.448 Personal history of other diseases of urinary system
CPT/HCPCS: 99213

== ENCOUNTER 2023-09-22 07:58 | Outpatient (REF) | payer BC, SELFPAY ==
[2023-09-22 12:35] LABS: Creatinine Urine 176.31 mg/dL; Total Protein Urine Random 13 mg/dL (<12)
[2023-09-22 12:41] LABS: Anion Gap 12 (12-20); Blood Urea Nitrogen 14 mg/dL (9-16); Calcium 9.6 mg/dL (8.4-10.2); Carbon Dioxide 27 mmol/L (22-29); Chloride 104 mmol/L (96-108); Estimated Glomerular Filt Rate 46; Sodium 139 mmol/L (135-145)
== END 2023-09-22 07:59 | disposition home or self-care (01) ==
LOC: HO.WFDLDS 07:58
PROVIDERS: Visit Provider Internal Medicine Hypertension Specialist
DX: I10 Essential (primary) hypertension (principal); R80.9 Proteinuria, unspecified
CPT/HCPCS: 36415; 80051; 82310; 82565; 82570; 84156; 84300; 84520

== ENCOUNTER 2023-09-30 15:40 | Outpatient (AMB) | payer BC, SELFPAY ==
--- NOTE | 2023-09-27 13:36 | HO.NEPHOV ---
Intake Visit Reasons: 6 mon follow up Allergies No Known Allergies [No Known Allergies*] Allergy (Verified 05/05/23 11:07) [facility] Medical History (Updated 05/05/23 @ 16:04 by Maribel Garner MD) Normal colonoscopy Annual physical exam Family History Father No problems noted. Mother No problems noted. Social History Household Members Other:: , 2 sons Housing: House Patient Tobacco Use Status: Never used Tobacco e-Cigarette/Vaping Use: Never Used Current occupational status: employed Cognitive needs: No Hearing needs: No Vision needs: Yes Results Reviewed Nephrology Results: Hgb 15.0 g/dl (14.0-18.0) 01/27/23 WBC 7.0 X10*3/uL (4.8-10.8) 01/27/23 Plt Count 168 X10*3/uL (160-400) 01/27/23 Sodium 139 mmol/L (135-145) 09/22/23 Potassium 4.0 mmol/L (3.3-5.1) 09/22/23 Chloride 104 mmol/L (96-108) 09/22/23 Carbon Dioxide 27 mmol/L (22-29) 09/22/23 BUN 14 mg/dL (9-16) 09/22/23 Creatinine 1.57 mg/dL (0.5-1.4) H 09/22/23 Calcium 9.6 mg/dL (8.4-10.2) 09/22/23 Phosphorus 2.9 mg/dL (2.7-4.5) 06/18/21 Urine Protein Negative mg/dL (Neg-Trace) 03/31/23 Urine Creatinine 176.31 mg/dL 09/22/23 Protein/Creatinin Ratio 0.09 (<0.2) 03/31/23 Coding
[2023-09-30 15:39] VITALS: BP 148/72; PULSE 60; O2SAT 98; BMI 28.5
--- NOTE | 2023-09-30 15:39 | HO.NEPHOV_ITS ---
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 Recently had a coughing spell therefore he stopped lisinopril. Had poison zuleika. Recent creatinine was 1.57. [facility] Medical History (Updated 05/05/23 @ 16:04 by Maribel Garner MD) Normal colonoscopy Annual physical exam Family History Father No problems noted. Mother No problems noted. Social History Household Members Other:: , 2 sons Housing: House Patient Tobacco Use Status: Never used Tobacco e-Cigarette/Vaping Use: Never Used Current occupational status: employed Cognitive needs: No Hearing needs: No Vision needs: Yes Physical Exam Vital Signs: Last Vital Signs Pulse 60 09/30/23 15:39 BP 148/72 H 09/30/23 15:39 Pulse Ox 98 09/30/23 15:39 Oxygen Delivery Method Room Air 09/30/23 15:39 BMI result Body Mass Index 28.5 Const General: comfortable Nutritional Appearance: well nourished Orientation/consciousness: patient oriented x3 HEENT Head: No normal to inspection Mouth: moist mucous membranes Neck Neck: Yes supple and Yes no JVD Resp Auscultation: clear to auscultation bilaterally, no rales and rub present Cardio Jugular venous distension: no JVD Palpation: no palpable S3 and no palpable S4 Heart sounds: no rubs GI Palpation (GI): Soft to palpation and nontender Percussion: No Fluid wave present General: Yes no CVA tenderness Back/Spine/Pelvis Back: no CVA tenderness Skin General skin exam: no rashes or lesions noted Neuro General: patient oriented x3 Extrem General: Yes no pedal edema and No clubbing Results Reviewed Nephrology Results: Hgb 15.0 g/dl (14.0-18.0) 01/27/23 WBC 7.0 X10*3/uL (4.8-10.8) 01/27/23 Plt Count 168 X10*3/uL (160-400) 01/27/23 Sodium 139 mmol/L (135-145) 09/22/23 Potassium 4.0 mmol/L (3.3-5.1) 09/22/23 Chloride 104 mmol/L (96-108) 09/22/23 Carbon Dioxide 27 mmol/L (22-29) 09/22/23 BUN 14 mg/dL (9-16) 09/22/23 Creatinine 1.57 mg/dL (0.5-1.4) H 09/22/23 Calcium 9.6 mg/dL (8.4-10.2) 09/22/23 Urine Protein Negative mg/dL (Neg-Trace) 03/31/23 Urine Creatinine 176.31 mg/dL 09/22/23 Protein/Creatinin Ratio 0.09 (<0.2) 03/31/23 Assessment & Plan Assessment & Plan (1) HTN (hypertension): Code(s): I10 - Essential (primary) hypertension Category: Medical (2) Proteinuria: Code(s): R80.9 - Proteinuria, unspecified Category: Medical Plan Middle aged man with Minimal change disease in remission NO proteinuria Baseline creatinine 1.33. Recently creatinine is bumped up to 1.57. Volume depletion could be playing a role. I will stop lisinopril. Encouraged him to increase fluid intake. Recheck serum creatinine. Replace lisinopril with amlodipine 2.5 mg q.d.. Monitor Creatinine and urine protein excretion Orders: Orders Basic Metabolic Panel Today I10 - Essential (primary) hypertension Basic Metabolic Panel 6 Months I10 - Essential (primary) hypertension Sodium Urine Random 6 Months I10 - Essential (primary) hypertension Creatinine Urine 6 Months I10 - Essential (primary) hypertension UA and rflx microscopic 6 Months I10 - Essential (primary) hypertension Medications: New amlodipine 2.5 mg PO DAILY 30 tabs 2RF Discontinued lisinopril Discontinued Reason: Doctor's Order 5 mg PO DAILY 90 tabs 3RF Coding Level of Care Code Est Pt Level 4 (52799) Diagnoses HTN (hypertension) I10 Proteinuria R80.9
== END 2023-09-30 15:55 | disposition home or self-care (01) ==
PROVIDERS: PCP Internal Medicine; Visit Provider Internal Medicine Hypertension Specialist
DX: I10 Essential (primary) hypertension (principal); R80.9 Proteinuria, unspecified
CPT/HCPCS: 99214

== ENCOUNTER → 2023-09-30 15:40 | Outpatient (BNVA) | payer BC, SELFPAY | PROVIDERS: PCP Internal Medicine; Visit Provider Internal Medicine Hypertension Specialist ==

== ENCOUNTER 2023-10-05 07:36 | Outpatient (REF) | payer BC, SELFPAY ==
[2023-10-05 12:16] LABS: Anion Gap 11 (12-20); Blood Urea Nitrogen 12 mg/dL (9-16); Calcium 9.4 mg/dL (8.4-10.2); Carbon Dioxide 26 mmol/L (22-29); Chloride 104 mmol/L (96-108); Estimated Glomerular Filt Rate > 60; Glucose Random 93 mg/dL (60-115); Sodium 137 mmol/L (135-145)
== END 2023-10-05 07:37 | disposition home or self-care (01) ==
LOC: HO.WFDLDS 07:36
PROVIDERS: Visit Provider Internal Medicine Hypertension Specialist
DX: I10 Essential (primary) hypertension (principal)
CPT/HCPCS: 36415; 80048

== ENCOUNTER 2023-11-04 11:16 | Outpatient (AMB) | payer BC, SELFPAY ==
[2023-11-04 11:14] VITALS: BP 138/78; PULSE 54; O2SAT 98; BMI 28.4
--- NOTE | 2023-11-04 11:14 | HO.NEPHOV ---
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 Recently had a coughing spell therefore he stopped lisinopril. Had poison zuleika. Recent creatinine was 1.57. 11/04/2023. Overall doing well. Repeat serum creatinine is down to 1.24 this is his baseline [facility] Medical History (Updated 05/05/23 @ 16:04 by Maribel Garner MD) Normal colonoscopy Annual physical exam Family History Father No problems noted. Mother No problems noted. Social History Household Members Other:: , 2 sons Housing: House Patient Tobacco Use Status: Never used Tobacco e-Cigarette/Vaping Use: Never Used Current occupational status: employed Cognitive needs: No Hearing needs: No Vision needs: Yes Physical Exam Vital Signs: Last Vital Signs Pulse 54 11/04/23 11:14 BP 138/78 11/04/23 11:14 Pulse Ox 98 11/04/23 11:14 Oxygen Delivery Method Room Air 11/04/23 11:14 BMI result Body Mass Index 28.4 Const General: comfortable; No acute distress Orientation/consciousness: patient oriented x3 Eyes General: appearance normal, both eyes and all related structures Visual Castro: normal visual castro by confrontation Neck Neck: Yes supple and Yes no JVD Resp Effort & Inspection: normal respiratory effort and respiratory effort not decreased Auscultation: rhonchi Cardio Palpation: no palpable S3 and no palpable S4 Heart sounds: no rubs GI Inspection: Yes normal to inspection Palpation (GI): Soft to palpation Percussion: Yes normal to percussion Auscultation: normal bowel sounds General: Yes no CVA tenderness Back/Spine/Pelvis Back: no CVA tenderness Skin General skin exam: no petechiae and no purpura Neuro General: patient oriented x3 and no focal motor deficits Extrem General: No clubbing and No edema Results Reviewed Nephrology Results: Hgb 15.0 g/dl (14.0-18.0) 01/27/23 WBC 7.0 X10*3/uL (4.8-10.8) 01/27/23 Plt Count 168 X10*3/uL (160-400) 01/27/23 Sodium 137 mmol/L (135-145) 10/05/23 Potassium 4.0 mmol/L (3.3-5.1) 10/05/23 Chloride 104 mmol/L (96-108) 10/05/23 Carbon Dioxide 26 mmol/L (22-29) 10/05/23 BUN 12 mg/dL (9-16) 10/05/23 Creatinine 1.24 mg/dL (0.5-1.4) 10/05/23 Calcium 9.4 mg/dL (8.4-10.2) 10/05/23 Urine Protein Negative mg/dL (Neg-Trace) 03/31/23 Urine Creatinine 176.31 mg/dL 09/22/23 Protein/Creatinin Ratio 0.09 (<0.2) 03/31/23 Assessment & Plan Assessment & Plan (1) History of glomerulonephritis: Comment: acute, nephrotic syndrome, 2017, follow-up with Nephrology every 6 months Code(s): Z87.448 - Personal history of other diseases of urinary system Category: Medical (2) HTN (hypertension): Code(s): I10 - Essential (primary) hypertension Category: Medical (3) Proteinuria: Code(s): R80.9 - Proteinuria, unspecified Category: Medical Plan Middle aged man with Minimal change disease in remission NO proteinuria Baseline creatinine 1.33. Recently creatinine is bumped up to 1.57. And has returned to baseline of 1.24. Bump in creatinine was most likely due to Volume depletion We will hold lisinopril for now . Encouraged him to increase fluid intake. Monitor blood pressure at home. Based on this I can readjust his antihypertensive medication Monitor Creatinine and urine protein excretion Orders: Orders Complete Blood Count Auto Diff 6 Months Z. - Personal history of other diseases of urinary system Creatinine Urine 6 Months Z. - Personal history of other diseases of urinary system UA and rflx microscopic 6 Months Z. - Personal history of other diseases of urinary system Comprehensive Met. Panel 6 Months - Personal history of other diseases of urinary system Total Protein Urine Random 6 Months Z.448 - Personal history of other diseases of urinary system Coding Level of Care Code Est Pt Level 3 (38356) Diagnoses History of glomerulonephritis Z HTN (hypertension) I10 Proteinuria R80.9
== END 2023-11-04 11:24 | disposition home or self-care (01) ==
PROVIDERS: PCP Internal Medicine; Visit Provider Internal Medicine Hypertension Specialist
DX: Z87.448 Personal history of other diseases of urinary system (principal); I10 Essential (primary) hypertension; R80.9 Proteinuria, unspecified
CPT/HCPCS: 99213

== ENCOUNTER → 2023-11-04 11:16 | Outpatient (BNVA) | payer BC, SELFPAY | PROVIDERS: PCP Internal Medicine; Visit Provider Internal Medicine Hypertension Specialist ==

== ENCOUNTER 2024-02-10 08:40 | Outpatient (REF) | payer BC, SELFPAY ==
[2024-02-10 11:18] LABS: MANUAL DIFF FLAG NO
[2024-02-10 11:24] LABS: Basophils Absolute Auto 0.1 X10*3/uL (0.0-0.2); Eosinophils Absolute Auto 0.3 X10*3/uL (0.0-0.4); Eosinophils Percent Auto 4.3 % (0-4); Hematocrit 43.7 % (42.0-52.0); Hemoglobin 15.3 g/dl (14.0-18.0); Imm Gran Abs Auto 0.02 X10*3/uL (0.00-0.03); Imm Gran Pct Auto 0.3 % (0.0-0.4); Lymphocytes Absolute Auto 1.6 X10*3/uL (1.2-4.9); Mean Corpuscular Hemoglobin 32.3 pg (27.0-33.0); Mean Corpuscular Volume 92.2 fL (80.0-98.0); Monocytes Absolute Auto 0.7 X10*3/uL (0.1-1.2); Monocytes Percent Auto 10.6 % (2-11); Neutrophils Absolute Auto 3.7 x10*3/uL (2.0-8.3); Neutrophils Percent Auto 57.8 % (45-73); Platelet Count 173 X10*3/uL (160-400); Red Blood Count 4.74 X10*6/uL (4.60-5.80); Red Cell Distribution Width 12.6 % (11.0-16.0); White Blood Count 6.3 X10*3/uL (4.8-10.8)
[2024-02-10 11:50] LABS: Cholesterol 204 mg/dL (<200); HDL Cholesterol 37 mg/dL (>40); LDL Cholesterol Calculated 140 mg/dL (<100); Triglycerides 135 mg/dL (<150)
[2024-02-10 11:53] LABS: PSA,Total (Free>4and<10) 0.68 ng/mL (0.00-4.00)
== END 2024-02-10 08:41 | disposition home or self-care (01) ==
LOC: HO.WFDLDS 08:40
PROVIDERS: Visit Provider Internal Medicine
DX: Z00.00 Encounter for general adult medical examination without abnormal findings (principal); I10 Essential (primary) hypertension; R80.9 Proteinuria, unspecified; Z12.5 Encounter for screening for malignant neoplasm of prostate
CPT/HCPCS: 36415; 80061; 84153; 85025

== ENCOUNTER 2024-02-16 12:52 | Outpatient (AMB) | payer BC, SELFPAY ==
--- NOTE | 2024-02-16 13:02 | MHC.PC.OV ---
Vital Signs 02/16/24 13:04 Height 5 ft 4 in Weight 164 lb BMI 28.1 BP 124/74 Blood Pressure Location Lt brachial Position Sitting Pulse 56 Pulse Source Pulse Oximeter Pulse Oximetry (%) 97 Oxygen Delivery Method Room Air Intake Visit Reasons: Annual PE Intake Note: Pt is here today for PE. Allergies No Known Allergies [No Known Allergies*] Allergy (Verified 02/16/24 13:16) Medication List - Last Reconciled 02/16/24 by Maribel Garner MD amlodipine 2.5 mg PO DAILY Tobacco use date assessed: 02/16/24 Dental Screening Dental Screen Date: 02/16/24 Did you have a dental visit in the last 12 months?: Yes Did you have a dental problem in the last 6 months where you did not have access to dental care?: No Was dental information given to patient?: Patient has dentist HPI Annual PE HPI Details Pt presents for PE PFSH Medical History (Updated 02/16/24 @ 13:39 by Maribel Garner MD) Normal colonoscopy Annual physical exam Surgical History (Updated 02/16/24 @ 13:19 by THAD Anderson) Hx of vasectomy Family History Father No problems noted. Mother No problems noted. Social History Household Members Other:: , 2 sons Housing: House Patient Tobacco Use Status: Never used Tobacco e-Cigarette/Vaping Use: Never Used service: No Current occupational status: employed Cognitive needs: No Hearing needs: No Vision needs: Yes Questionnaire PHQ-9 Over the last 2 weeks, how often have you been bothered by any of the following problems? 1. Little interest or pleasure in doing things: not at all 2. Feeling down, depressed, or hopeless: not at all 3. Trouble falling or staying asleep, or sleeping too much: not at all 4. Feeling tired or having little energy: not at all 5. Poor appetite or overeating: not at all 6. Feeling bad about yourself - or that you are a failure or have let yourself or your family down: not at all 7. Trouble concentrating on things, such as reading the newspaper or watching television: not at all 8. Moving or speaking so slowly that other people could have noticed. Or the opposite - being so fidgety or restless that you have been moving around a lot more than usual: not at all 9. Thoughts that you would be better off or of hurting yourself in some way: not at all Total score: 0 Depression Screening Interpretation: Negative Depression Screening Done: Yes 99630 - PHQ-9 Billing: Yes Source: Developed by Drs. Surya Gannon, Zee Harden, Roldan Martinez and colleagues, with an educational zak from [employer]. Thrive Questionnaire Date Thrive assessed: 02/16/24 I am a: Patient What is your living situation today?: I have a steady place to live Within the past 12 months, did the food you bought not last and you didn't have the money to get more?: Never true Within the past 12 months, did you worry whether your food would run out before you got money to buy more?: Never true Do you have trouble paying for medicines?: No Do you have trouble getting transportation to medical appointments?: No Do you have trouble paying your heating and electricity bill?: No Do you have trouble taking care of your child, family member or friend?: No Do you have trouble with day-to-day activities such as bathing, preparing meals, shopping, managing finances, etc.?: No Are you currently unemployed and looking for a job?: No Are you interested in more education?: No Please select the resources that you would like help with: None Currently or been in a relationship where the following occur: No concerns reported THRIVE Score: 0 AUDIT C Alcohol Use Questionnaire (AUDIT-C) 1. How often do you have a drink containing alcohol?: 2-4 times a month 2. How many drinks containing alcohol do you have on a typical day when you are drinking?: 3 or 4 3. How often do you have six or more drinks on one occasion?: Never Total Score: 3 PADMA-7 AMB Questionnaire PADMA-7 Date PADMA - 7 assessed: 02/16/24 Feeling nervous, anxious, or on edge: 0 = Not at all Not being able to stop or control worryin = Not at all Worrying too much about different things: 0 = Not at all Trouble relaxin = Not at all Being so restless that it is hard to sit still: 0 = Not at all Becoming easily annoyed or irritable: 0 = Not at all Feeling afraid as if something awful might happen: 0 = Not at all Total PADMA-7 score (0-4 normal; 5-9 mild; 10-14 moderate; 15-21 severe): 0 Source: Developed by Drs. Surya Gannon, Zee Harden, Roldan Martinez and colleagues, with an educational zak from [employer]. PADMA-7 Assessment Billing PADMA-7 Assessment Tool: PADMA-7 Assessment 44192 Review of Systems Const All systems reviewed & are unremarkable except as noted in HPI and below Eyes Reports no additional complaints ENT Reports no additional complaints Card Reports no additional complaints Resp Reports no additional complaints GI Reports no additional complaints Reports no additional complaints Physical exam (Primary Care) Vital Signs: Last Vital Signs Pulse 56 02/16/24 13:04 BP 124/74 02/16/24 13:04 Pulse Ox 97 02/16/24 13:04 Oxygen Delivery Method Room Air 02/16/24 13:04 BMI result Body Mass Index 28.1 Tobacco/Smoking Status: Tobacco use Status Tobacco use date assessed 02/16/24 02/16/24 13:19 Patient Tobacco Use Status Never used Tobacco 02/16/24 13:03 e-Cigarette/Vaping Use Never Used 02/16/24 13:03 PHQ-9: PHQ-9 Score PHQ-9: Total score 0 02/16/24 13:19 Depression Screening Interpretation: Negative Thrive Assessment: Date of Thrive Assessment Date Thrive assessed 02/16/24 02/16/24 13:19 Currently or been in a relationship where the following occur: No concerns reported Const General: no acute distress HENMT Head: Yes normal to inspection Ears: hearing grossly normal bilaterally General nose exam: Normal external nose present Eyes General: appearance normal, both eyes and all related structures Neck Neck: Yes no lymphadenopathy and Yes supple Resp Effort & Inspection: normal respiratory effort Auscultation: clear to auscultation bilaterally Cardio Rhythm: regular rhythm Heart sounds: S1 normal heart sound present and S2 normal heart sound present GI Inspection: Yes normal to inspection Palpation (GI): Soft to palpation Percussion: Yes normal to percussion Auscultation: normal bowel sounds Coding Level of Care Code Est Pt Prev Care 40-64y(89562) Diagnoses Annual physical exam Z00.00 Normal colonoscopy HTN (hypertension) I10 Additional Codes PADMA-7 Assessment Billing - PADMA-7 Assessment Tool: PADMA-7 Assessment 55225 ([id number]) Assessment & Plan Assessment & Plan (1) Annual physical exam: Code(s): Z00.00 - Encounter for general adult medical examination without abnormal findings Category: Medical Plan: WELL-BALANCED DIET REGULAR PHYSICAL ACTIVITY DISCUSSED WITH THE PATIENT. (2) Normal colonoscopy: Comment: at 48 's Category: Medical Plan: Up-to-date with colonoscopy (3) HTN (hypertension): Comment: Lisinopril caused increase in creatinine, change to Amlodipine by nephrology Code(s): I10 - Essential (primary) hypertension Category: Medical Plan: Continue amlodipine follow-up with nephrology Orders: Orders Comprehensive [place]. Panel Fast 1 Year I10 - Essential (primary) hypertension, Z00.00 - Encounter for general adult medical examination without abnormal findings Complete Blood Count Auto Diff 1 Year I10 - Essential (primary) hypertension, Z00.00 - Encounter for general adult medical examination without abnormal findings Lipid Panel 1 Year I10 - Essential (primary) hypertension, Z00.00 - Encounter for general adult medical examination without abnormal findings PSA,Total (Free>4and<10) 1 Year I10 - Essential (primary) hypertension, Z00.00 - Encounter for general adult medical examination without abnormal findings UA w Microscopic 1 Year I10 - Essential (primary) hypertension, Z00.00 - Encounter for general adult medical examination without abnormal findings
[2024-02-16 13:04] VITALS: BP 124/74; PULSE 56; O2SAT 97; BMI 28.1
== END 2024-02-16 13:58 | disposition home or self-care (01) ==
PROVIDERS: PCP Internal Medicine; Visit Provider Internal Medicine
DX: Z00.00 Encounter for general adult medical examination without abnormal findings (principal); I10 Essential (primary) hypertension

== ENCOUNTER → 2024-02-16 12:52 | Outpatient (BNVA) | payer BC, SELFPAY | PROVIDERS: PCP Internal Medicine; Visit Provider Internal Medicine | DX: Z00.00 Encounter for general adult medical examination without abnormal findings (principal); I10 Essential (primary) hypertension; Z79.899 Other long term (current) drug therapy | CPT/HCPCS: 96127 ==

== ENCOUNTER 2024-05-03 08:23 | Outpatient (REF) | payer BC, SELFPAY ==
[2024-05-03 11:08] LABS: MANUAL DIFF FLAG NO
[2024-05-03 11:14] LABS: Basophils Percent Auto 0.6 % (0-2); Eosinophils Absolute Auto 0.4 X10*3/uL (0.0-0.4); Eosinophils Percent Auto 6.1 % (0-4); Hematocrit 41.5 % (42.0-52.0); Hemoglobin 14.8 g/dl (14.0-18.0); Imm Gran Abs Auto 0.03 X10*3/uL (0.00-0.03); Imm Gran Pct Auto 0.5 % (0.0-0.4); Lymphocytes Absolute Auto 1.9 X10*3/uL (1.2-4.9); Lymphocytes Percent Auto 30.8 % (20-40); Mean Corpuscular HGB Conc 35.7 g/dl (31.0-36.0); Mean Corpuscular Hemoglobin 32.5 pg (27.0-33.0); Mean Platelet Volume 11.4 fL (9.4-12.4); Monocytes Absolute Auto 0.6 X10*3/uL (0.1-1.2); Monocytes Percent Auto 9.7 % (2-11); Neutrophils Absolute Auto 3.3 x10*3/uL (2.0-8.3); Neutrophils Percent Auto 52.3 % (45-73); Platelet Count 170 X10*3/uL (160-400); Red Blood Count 4.56 X10*6/uL (4.60-5.80); Red Cell Distribution Width 12.6 % (11.0-16.0); White Blood Count 6.3 X10*3/uL (4.8-10.8)
[2024-05-03 11:23] LABS: Appearance Urine Clear; Color Urine Yellow; Glucose Urine UA Negative (Negative); Leukocyte Esterase Urine Negative (Negative); Nitrite Urine Negative (Negative); Urine Blood Negative (Negative); Urine Ketones Negative (Negative); Urine Protein Negative (Neg-Trace)
[2024-05-03 11:49] LABS: Alanine Aminotransferase 33 U/L (0-40); Albumin Level 4.3 g/dL (3.5-5.0); Alkaline Phosphatase 52 U/L (39-117); Anion Gap 10 (12-20); Aspartate Amino Transferase 26 U/L (5-37); Blood Urea Nitrogen 14 mg/dL (9-16); Carbon Dioxide 26 mmol/L (22-29); Chloride 108 mmol/L (96-108); Estimated Glomerular Filt Rate 52; Glucose Random 110 mg/dL (60-115); Potassium 4.2 mmol/L (3.3-5.1); Sodium 140 mmol/L (135-145); Total Protein 6.9 g/dL (6.5-8.0)
[2024-05-03 11:57] LABS: Creatinine Urine 84.97 mg/dL; Total Protein Urine Random < 7 mg/dL (<12)
== END 2024-05-03 08:24 | disposition home or self-care (01) ==
LOC: HO.WFDLDS 08:23
PROVIDERS: Visit Provider Internal Medicine Hypertension Specialist
DX: I10 Essential (primary) hypertension (principal); Z87.448 Personal history of other diseases of urinary system
CPT/HCPCS: 36415; 80053; 81003; 82570; 84156; 84300; 85025

== ENCOUNTER 2024-05-09 13:02 | Outpatient (AMB) | payer BC, SELFPAY ==
[2024-05-09 13:12] VITALS: BP 140/70; PULSE 73; O2SAT 97; BMI 29.5
--- NOTE | 2024-05-09 13:12 | HO.NEPHOV_ITS ---
Vital Signs 05/09/24 13:12 Height 5 ft 4 in Weight 172 lb BMI 29.5 BP 140/70 H Blood Pressure Location Lt brachial Position Sitting Pulse 73 Pulse Source Pulse Oximeter Pulse Oximetry (%) 97 Oxygen Delivery Method Room Air Intake Visit Reasons: Hypertension/ CONF Email Operations Manager Required: No Accompanied by: Self / Same As Patient Allergies No Known Allergies [No Known Allergies*] Allergy (Verified 05/09/24 13:14) PFS Medical History (Updated 02/16/24 @ 13:39 by Maribel Garner MD) Normal colonoscopy Annual physical exam Surgical History Hx of vasectomy Family History Father No problems noted. Mother No problems noted. Social History Household Members Other:: , 2 sons Housing: House Patient Tobacco Use Status: Never used Tobacco e-Cigarette/Vaping Use: Never Used service: No Current occupational status: employed Cognitive needs: No Hearing needs: No Vision needs: Yes Results Reviewed Nephrology Results: Hgb 14.8 g/dl (14.0-18.0) 05/03/24 WBC 6.3 X10*3/uL (4.8-10.8) 05/03/24 Plt Count 170 X10*3/uL (160-400) 05/03/24 Sodium 140 mmol/L (135-145) 05/03/24 Potassium 4.2 mmol/L (3.3-5.1) 05/03/24 Chloride 108 mmol/L (96-108) 05/03/24 Carbon Dioxide 26 mmol/L (22-29) 05/03/24 BUN 14 mg/dL (9-16) 05/03/24 Creatinine 1.40 mg/dL (0.5-1.4) 05/03/24 Calcium 9.0 mg/dL (8.4-10.2) 05/03/24 Urine Protein Negative mg/dL (Neg-Trace) 05/03/24 Urine Creatinine 84.97 mg/dL 05/03/24 Coding
--- NOTE | 2024-05-09 13:16 | HO.NEPHOV_ITS ---
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 Recently had a coughing spell therefore he stopped lisinopril. Had poison zuleika. Recent creatinine was 1.57. 11/04/2023. Overall doing well. Repeat serum creatinine is down to 1.24 this is his baseline [facility] Medical History (Updated 02/16/24 @ 13:39 by Maribel Garner MD) Normal colonoscopy Annual physical exam Surgical History Hx of vasectomy Family History Father No problems noted. Mother No problems noted. Social History Household Members Other:: , 2 sons Housing: House Patient Tobacco Use Status: Never used Tobacco e-Cigarette/Vaping Use: Never Used service: No Current occupational status: employed Cognitive needs: No Hearing needs: No Vision needs: Yes Physical Exam Vital Signs: Last Vital Signs Pulse 73 05/09/24 13:12 BP 140/70 H 05/09/24 13:12 Pulse Ox 97 05/09/24 13:12 Oxygen Delivery Method Room Air 05/09/24 13:12 BMI result Body Mass Index 29.5 Comfortable Neck supple no JVD. Lungs entry equal no rales. Heart S1-S2 heard no gallop or rub. Abdomen soft nontender. Neuro alert awake oriented. No asterixis. Extremities no edema. Results Reviewed Nephrology Results: Hgb 14.8 g/dl (14.0-18.0) 05/03/24 WBC 6.3 X10*3/uL (4.8-10.8) 05/03/24 Plt Count 170 X10*3/uL (160-400) 05/03/24 Sodium 140 mmol/L (135-145) 05/03/24 Potassium 4.2 mmol/L (3.3-5.1) 05/03/24 Chloride 108 mmol/L (96-108) 05/03/24 Carbon Dioxide 26 mmol/L (22-29) 05/03/24 BUN 14 mg/dL (9-16) 05/03/24 Creatinine 1.40 mg/dL (0.5-1.4) 05/03/24 Calcium 9.0 mg/dL (8.4-10.2) 05/03/24 Urine Protein Negative mg/dL (Neg-Trace) 05/03/24 Urine Creatinine 84.97 mg/dL 05/03/24 Assessment & Plan Assessment & Plan (1) History of glomerulonephritis: Comment: acute, nephrotic syndrome, 2017, follow-up with Nephrology every 6 months Code(s): Z87.448 - Personal history of other diseases of urinary system Category: Medical (2) HTN (hypertension): Comment: Lisinopril caused increase in creatinine, change to Amlodipine by nephrology Code(s): I10 - Essential (primary) hypertension Category: Medical (3) Proteinuria: Code(s): R80.9 - Proteinuria, unspecified Category: Medical Plan Middle aged man with Minimal change disease in remission NO proteinuria Baseline creatinine 1.3 to 1.4 Recently creatinine is bumped up to 1.57. And has returned to baseline of 1.24. Bump in creatinine was most likely due to Volume depletion We will hold lisinopril for now . Encouraged him to increase fluid intake. Monitor blood pressure at home. Based on this I can readjust his antihypertensive medication Monitor Creatinine and urine protein excretion Orders: Orders Basic Metabolic Panel 6 Months I10 - Essential (primary) hypertension Total Protein Urine Random 6 Months I10 - Essential (primary) hypertension UA and rflx microscopic 6 Months I10 - Essential (primary) hypertension Creatinine Urine 6 Months I10 - Essential (primary) hypertension Coding Level of Care Code Est Pt Level 4 (28553) Diagnoses History of glomerulonephritis Z87.448 HTN (hypertension) I10 Proteinuria R80.9
== END 2024-05-09 13:21 | disposition home or self-care (01) ==
PROVIDERS: PCP Internal Medicine; Visit Provider Internal Medicine Hypertension Specialist
DX: Z87.448 Personal history of other diseases of urinary system (principal); I10 Essential (primary) hypertension; R80.9 Proteinuria, unspecified
CPT/HCPCS: 99214

== ENCOUNTER → 2024-05-09 13:02 | Outpatient (BNVA) | payer BC, SELFPAY | PROVIDERS: PCP Internal Medicine; Visit Provider Internal Medicine Hypertension Specialist ==

== ENCOUNTER 2024-06-30 07:46 | Outpatient (REF) | payer BC, SELFPAY ==
--- OUTSIDE RECORDS SUMMARY | 2024-06-30 07:49 | XMS_ITS | Encounter Summary ---
Author Organization [facility] Address [address] [facility] [address] [place] [address] Phone Care Team Providers Care Washcoat Wiper Name Role Phone Maribel Garner MD Primary Care Provider [phone] Encounter Details Date Type Department Care Team (Latest Contact Info) Description 03/26/2023 Office Communication [facility] [address] [facility] [address] [place] [address] Lee Addison MD [address] [facility] [address] [place] [address] Stage 3a chronic kidney disease (HCC) (Primary Dx) Social History Tobacco Use Types Packs/Day Years Used Date Smoking Tobacco: Never Smokeless Tobacco: Never Alcohol Use Standard Drinks/Week Comments Yes 0 (1 standard drink = 0.6 oz pure alcohol) Alcoholic Drinks/day: Occasional social drink Sex and Gender Information Value Date Recorded Sex Assigned at Not on file Legal Sex Male 4:50 PM EST Gender Identity Not on file Sexual Orientation Not on file documented as of this encounter Miscellaneous Notes * Telephone Encounter - Maxine Ramirez - 04/01/2023 3:42 PM EST I did confirm the follow up with you, now it looks like he got the lab order and then stated he will be staying with Dr. Kramer * Telephone Encounter - Lee Addison MD - 04/01/2023 2:41 PM EST Ques f/u with me? * Telephone Encounter - Maxine Ramirez - 03/29/2023 9:06 AM EST Spoke with the patient and confirmed the appointment. His lab order was faxed to [facility] at [phone] * Telephone Encounter - Lee Addison MD - 03/26/2023 10:21 AM EST Please call PT and let him know labs entered in our EHR and we can send to him and fax to whicheverlab he goes to Pls confirm appt with me next week documented in this encounter Plan of Treatment Scheduled Orders Name Type Priority Associated Diagnoses Orde r Schedule Renal Function Panel Lab Routine Stage 3a chronic kidney disease (HCC) Expected: 03/26/2023, Expires: 04/26/2024 Urine Albumin / Creatinine Ratio Lab Routine Stage 3a chronic kidney disease (HCC) Expected: 03/26/2023, Expires: 04/26/2024 documented as of this encounter Procedures Procedure Name Priority Date/Time Associated Diagnosis Comments PROTEIN / CREATININE RATIO, URINE Routine 03/31/2023 11:06 AM EST Stage 3a chronic kidney disease (HCC) URINALYSIS WITH MICROSCOPIC Routine 03/31/2023 11:06 AM EST Stage 3a chronic kidney disease (HCC) documented in this encounter Results * Protein, Total, Random Urine w/Creatinine (Protein/Creat Ratio) (03/31/2023 11:06 AM EST) Protein Urine Random 8 <12 mg/dL [place] Protein/Creatin ine Ratio, Urine 0.09 <0.2 [place] Comment: The spot urine protein:creatinine ratio may increase to 0.3 during normal . Urine (Urine, Clean Catch) 03/31/2023 11:06 AM EST 03/31/2023 11:06 AM EST Lee Addison MD LAB URINE ORDERABLES Final Re sult [place] * Urinalysis with microscopic (03/31/2023 11:06 AM EST) Color Urine Yellow [place] Appearance Urine Clear [place] pH Urine 6.0 5.0 - 9.0 [place] Glucose Urine Negative Negative mg/dL [place] Blood, Urine Negative Negative [place] Specific [place] Urine 1.010 1.005 - 1.025 [place] Protein Urine Negative Neg-Trace mg/dL [place] Ketones, Urine Negative Negative mg/dL [place] Nitrite, Urine Negative Negative [place] Leukocyte Esterase Urine Negative Negative [place] RBC, Urine 0-2 0 - 2 /HPF [place] WBC 0-5 0 - 5 /HPF [place] Squamous Epithelial, Urine 0-2 0 - 2 /HPF [place] Bacteria, Urine None Seen None Seen [place] Hyaline Casts, Urine 0-2 0 - 2 /LPF [place] Urine (Urine, Clean Catch) 03/31/2023 11:06 AM EST 03/31/2023 11:06 AM EST Lee Addison MD LAB URINE ORDERABLES Final Re sult Performing Organization Address City[facility] Co de Phone Number [place] documented in this encounter Visit Diagnoses Diagnosis Stage 3a chronic kidney disease (HCC)- Primary documented in this encounter Care Teams Washcoat Wiper Relationship Specialty Start Date End Date Maribel Garner MD [address] [place] [address] PCP - General 05/06/20 documented as of this encounter
--- OUTSIDE RECORDS SUMMARY | 2024-06-30 07:49 | XMS_ITS | Clinical Summary ---
Author Organization [facility] Address [address] [place] [address] Phone Care Team Providers Care Veneer Press Operator Name Role Phone Maribel Garner MD Primary Care Provider Allergies No known active allergies Medications Multiple Vitamin (multivitamin) capsule Take 1 capsule by mouth 1 (one) time each day Active Active Problems Problem Noted Date Diagnosed Date Chronic nephritic syndrome 07/26/2020 Disorder of kidney and/or ureter 07/26/2020 Family History Medical History Relation Comments Hypertension Father Relation Status Comments Father Unknown Mother Unknown Social History Tobacco Use Types Packs/Day Years Used Date Smoking Tobacco: Never Smokeless Tobacco: Never Tobacco Cessation:Counseling Given: Not Answered Alcohol Use Standard Drinks/Week Comments Yes 0 (1 standard drink = 0.6 oz pure alcohol) Alcoholic Drinks/day: Occasional social drink Sex and Gender Information Value Date Recorded Sex Assigned at Not on file Legal Sex Male 4:50 PM EST Gender Identity Not on file Sexual Orientation Not on file Last Filed Vital Signs Vital Sign Reading Time Taken Comments Blood Pressure 110/60 07/16/2022 12:57 PM EDT Pulse 60 07/16/2022 12:57 PM EDT Temperature - - Respiratory Rate - - Oxygen Saturation 98% 07/16/2022 12:57 PM EDT Inhaled Oxygen Concentration - - Weight 77.4 kg (170 lb 9.6 oz) 07/16/2022 12:57 PM EDT Height 165.1 cm (5' 5 ) 07/16/2022 12:57 PM EDT Body Mass Index 28.39 07/16/2022 12:57 PM EDT Plan of Treatment Health Maintenance Due Date Last Done Comments Pneumococcal Vaccine: Pediat rics (0 to 5 Years) and At-Risk Patients (6 to 64 Years) (1 of 2 - PCV) 1974 Hepatitis B Vaccine (1 of 3 - 19+ 3-dose series) 03/12 Colorectal Cancer Screening: Annual FOBT 2017 Colorectal Cancer Screening: Colonoscopy 2017 Colorectal Cancer Screening: Sigmoidoscopy 2017 Influenza Vaccine (#1) 2023 Insurance [facility] Care Teams Veneer Press Operator Relationship Specialty Start Date End Date Maribel Garner MD [address] [place] [address] PCP - General 05/06/20
[2024-06-30 11:31] LABS: Appearance Urine Clear; Color Urine Yellow; Glucose Urine UA Negative (Negative); Leukocyte Esterase Urine Negative (Negative); Nitrite Urine Negative (Negative); PH 7.5 (5.0-9.0); Urine Blood Negative (Negative); Urine Ketones Negative (Negative); Urine Protein Negative (Neg-Trace)
[2024-06-30 12:18] LABS: Creatinine Urine 60.31 mg/dL
[2024-06-30 12:21] LABS: Anion Gap 11 (12-20); Blood Urea Nitrogen 16 mg/dL (9-16); Carbon Dioxide 27 mmol/L (22-29); Chloride 104 mmol/L (96-108); Estimated Glomerular Filt Rate 52; Glucose Random 96 mg/dL (60-115); Potassium 3.9 mmol/L (3.3-5.1); Sodium 138 mmol/L (135-145)
== END 2024-06-30 07:47 | disposition home or self-care (01) ==
LOC: HO.WFDLDS 07:46
PROVIDERS: Visit Provider Internal Medicine Hypertension Specialist
DX: I10 Essential (primary) hypertension (principal); Z87.448 Personal history of other diseases of urinary system
CPT/HCPCS: 36415; 80048; 81003; 82570

== ENCOUNTER 2024-09-22 11:32 | Outpatient (AMB) | payer BC, SELFPAY ==
--- NOTE | 2024-09-22 11:47 | A.OFFPC_ITS ---
Vital Signs 09/22/24 11:48 Height 5 ft 4 in Weight 170 lb BMI 29.2 BP 130/72 Blood Pressure Location Lt brachial Position Sitting Respiration 16 Pulse 55 Pulse Source Pulse Oximeter Temp 98.6 F Temp Source Oral Pulse Oximetry (%) 98 Intake Visit Reasons: lump on hair line Certified Solid Waste Facility Operator Required: No Accompanied by: Self / Same As Patient Allergies No Known Allergies [No Known Allergies*] Allergy (Verified 09/22/24 11:49) Tobacco use date assessed: 09/22/24 Dental Screening Dental Screen Date: 09/22/24 Did you have a dental visit in the last 12 months?: Yes Did you have a dental problem in the last 6 months where you did not have access to dental care?: No Was dental information given to patient?: Patient has dentist HPI lump on hair line HPI Details Patient presents complaining of 2 new skin growth on his forehead and the side of his right cheek he has noticed 2 months ago. [facility] Medical History Normal colonoscopy (~08/12/17) Annual physical exam Surgical History Hx of vasectomy Family History Father No problems noted. Mother No problems noted. 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 1. Little interest or pleasure in doing things: not at all 2. Feeling down, depressed, or hopeless: not at all 3. Trouble falling or staying asleep, or sleeping too much: not at all 4. Feeling tired or having little energy: not at all 5. Poor appetite or overeating: not at all 6. Feeling bad about yourself - or that you are a failure or have let yourself or your family down: not at all 7. Trouble concentrating on things, such as reading the newspaper or watching television: not at all 8. Moving or speaking so slowly that other people could have noticed. Or the opposite - being so fidgety or restless that you have been moving around a lot more than usual: not at all 9. Thoughts that you would be better off or of hurting yourself in some way: not at all Total score: 0 Depression Screening Interpretation: Negative Depression Screening Done: Yes 36224 - PHQ-9 Billing: Yes Source: Developed by Drs. Surya Gannon, Zee Harden, Roldan Martinez and colleagues, with an educational zak from [employer]. Thrive Questionnaire Date Thrive assessed: 09/22/24 I am a: Patient What is your living situation today?: I have a steady place to live Within the past 12 months, did the food you bought not last and you didn't have the money to get more?: Never true Within the past 12 months, did you worry whether your food would run out before you got money to buy more?: Never true Do you have trouble paying for medicines?: No Do you have trouble getting transportation to medical appointments?: No Do you have trouble paying your heating and electricity bill?: No Do you have trouble taking care of your child, family member or friend?: No Do you have trouble with day-to-day activities such as bathing, preparing meals, shopping, managing finances, etc.?: No Are you currently unemployed and looking for a job?: No Are you interested in more education?: No Please select the resources that you would like help with: None Currently or been in a relationship where the following occur: No concerns reported THRIVE Score: 0 AUDIT C Alcohol Use Questionnaire (AUDIT-C) 1. How often do you have a drink containing alcohol?: 2-4 times a month 2. How many drinks containing alcohol do you have on a typical day when you are drinking?: 1 or 2 3. How often do you have six or more drinks on one occasion?: Never Total Score: 2 Score Reviewed/Action Taken: Yes PADMA-7 AMB Questionnaire PADMA-7 Date PADMA - 7 assessed: 09/22/24 Feeling nervous, anxious, or on edge: 0 = Not at all Not being able to stop or control worryin = Not at all Worrying too much about different things: 0 = Not at all Trouble relaxin = Not at all Being so restless that it is hard to sit still: 0 = Not at all Becoming easily annoyed or irritable: 0 = Not at all Feeling afraid as if something awful might happen: 0 = Not at all Total PADMA-7 score (0-4 normal; 5-9 mild; 10-14 moderate; 15-21 severe): 0 Source: Developed by Drs. Surya Gannon, Zee Harden, Roldan Martinez and colleagues, with an educational zak from [employer]. PADMA-7 Assessment Billing PADMA-7 Assessment Tool: PADMA-7 Assessment 69815 Review of Systems Const All systems reviewed & are unremarkable except as noted in HPI and below Eyes Reports no additional complaints ENT Reports no additional complaints Card Reports no additional complaints Resp Reports no additional complaints GI Reports no additional complaints Reports no additional complaints Physical exam (Primary Care) Vital Signs: Last Vital Signs Temp 98.6 F 09/22/24 11:48 Pulse 55 09/22/24 11:48 Resp 16 09/22/24 11:48 BP 130/72 09/22/24 11:48 Pulse Ox 98 09/22/24 11:48 BMI result Body Mass Index 29.2 Tobacco/Smoking Status: Tobacco use Status Tobacco use date assessed 09/22/24 09/22/24 11:52 Patient Tobacco Use Status Never used Tobacco 09/22/24 11:52 e-Cigarette/Vaping Use Never Used 09/22/24 11:52 PHQ-9: PHQ-9 Score PHQ-9: Total score 0 09/22/24 11:52 Depression Screening Interpretation: Negative Thrive Assessment: Date of Thrive Assessment Date Thrive assessed 09/22/24 09/22/24 11:52 Currently or been in a relationship where the following occur: No concerns reported Const General: no acute distress HENMT Other: 2 cm subcutaneous firm cysts on the upper left forehead and right lateral cheek area, not tender, no erythema warmth Eyes General: appearance normal, both eyes and all related structures Neck Neck: Yes no lymphadenopathy and Yes supple Resp Effort & Inspection: normal respiratory effort Auscultation: clear to auscultation bilaterally Cardio Rhythm: regular rhythm Heart sounds: S1 normal heart sound present and S2 normal heart sound present Coding Level of Care Code Est Pt Level 3 (34285) Diagnoses Cyst of skin and subcutaneous tissue L72.0 Additional Codes PADMA-7 Assessment Billing - PADMA-7 Assessment Tool: PADMA-7 Assessment 53704 ([id number]) PHQ-9 - 25555 - PHQ-9 Billing: Yes ([id number]) Assessment & Plan Assessment & Plan (1) Cyst of skin and subcutaneous tissue: Code(s): L72.0 - Epidermal cyst Category: Medical Plan: Referred to pipeline gang supervisor for evaluation Orders: Referrals Dermatology Referral D23.9 - Other benign neoplasm of skin, unspecified
[2024-09-22 11:48] VITALS: BP 130/72; PULSE 55; RESP 16; TEMP 37; O2SAT 98; BMI 29.2
== END 2024-09-22 13:12 | disposition home or self-care (01) ==
LOC: HO.HMCC 11:33
PROVIDERS: PCP Internal Medicine; Visit Provider Internal Medicine
DX: L72.0 Epidermal cyst (principal)

== ENCOUNTER → 2024-09-22 11:32 | Outpatient (BNVA) | payer BC, SELFPAY | PROVIDERS: PCP Internal Medicine; Visit Provider Internal Medicine | DX: L72.0 Epidermal cyst (principal) | CPT/HCPCS: 96127 ==

== ENCOUNTER 2024-11-15 08:59 | Outpatient (REF) | payer BC, SELFPAY ==
--- OUTSIDE RECORDS SUMMARY | 2024-11-15 09:26 | XMS_ITS | Clinical Summary ---
Author Organization [facility] Address [address] [facility] [address] [place] [id number] Phone Care Team Providers Care Data Officer Name Role Phone Unknown, Unknown Primary Care Provider Nena lee Social History Tobacco Use Types Packs/Day Years Used Date Smoking Tobacco: Never Assessed Education Answer Date Recorded Are you interested in more education? Not on joseph e 08/21/2022 Are you concerned about learning? Not on file 08/21/2022 No 08/21/2022 No 08/21/2022 Digital Access Answer Date Recorded No 09/19/2022 No 09/19/2022 No 09/19/2022 Reliable internet access at home? Not on file 09/19/2022 Device with a working camera? Not on file Sex and Gender Information Value Date Recorded Sex Assigned at Not on file Legal Sex Male 3:14 PM EDT Gender Identity Not on file Sexual Orientation Not on file Plan of Treatment Health Maintenance Due Date Last Done Comments LIPID PANEL 1968 DEPRESSION SCREENING 1980 SMOKING Hx and SMOKELESS TOBACCO SCREENING 1981 HEPATITIS C SCREENING 1986 HIV ONE-TIME SCREENING (18-6 5 YEARS) 1986 COLOGUARD 2013 COLONOSCOPY 2013 COLORECTAL CANCER SCREENING 2013 FIT TEST 2013 FOBT 2013 SIGMOIDOSCOPY 2013 VIRTUAL COLONOSCOPY 2013 PNEUMOCOCCAL VACCINES (50+ years) (1 of 1 - PCV) 2018 ZOSTER VACCINES (1 of 2) 2018 COVID-19 VACCINE (3 - 2023-2 5 season) 2023 08/07/2020, 07/17/2020 Adult Td,Tdap Booster 05/20/2026 05/20/2016 HEPATITIS A VACCINES Aged Out No long er eligible based on patient's age to complete this topic HIB VACCINES Aged Out No longer eligi ble based on patient's age to complete this topic MENINGOCOCCAL VACCINES (ACWY) Aged Out No longer eligible based on patient's age to complete this topic MENINGOCOCCAL VACCINES (B) Aged Out N o longer eligible based on patient's age to complete this topic Medical Devices Not on file Insurance HMO POS HMO POS HMO POS HMO POS HMO POS HMO POS HMO POS HMO POS [address] [place], [place] [id number] POS Care Teams Data Officer Relationship Specialty Start Date End Date Unknown, Unknown, PCP - General 02/19/17 Additional Source Comments The information contained in this document represents components of the legal health record. It is not the complete legal health record.[facility]
--- OUTSIDE RECORDS SUMMARY | 2024-11-15 09:26 | XMS_ITS | Clinical Summary ---
Author Organization [facility] Address [address] [place] [address] Phone Care Team Providers Care Record Librarian Name Role Phone Maribel Garner MD Primary Care Provider [phone] Allergies No known active allergies Medications Multiple [...] Health Maintenance Due Date Last Done Comments Hepatitis B Vaccine (1 of 3 - 19+ 3-dose series) 03/12 Pneumococcal Vaccine: 50+ Years (1 of 2 - PCV) 987 Colorectal Cancer Screening: Annual FOBT 2017 Colorectal Cancer Screening: Colonoscopy 2017 Colorectal Cancer Screening: Sigmoidoscopy 2017 Influenza Vaccine (#1) 2024 Insurance [facility] Care Teams Record Librarian Relationship Specialty Start Date End Date Maribel Garner MD [address] [place] [address] PCP - General 05/06/20
--- OUTSIDE RECORDS SUMMARY | 2024-11-15 09:26 | XMS_ITS | Clinical Summary ---
Author Organization [address] [place] [address] [place] [phone] Phone Care Team Providers Care Digester Hand Name Role Phone Maribel Garner MD Primary Care Provider [phone] Allergies No known active allergies Medications amLODIPine (NORVASC) 2.5 mg tablet Take 1 tablet (2.5 mg total) by mouth 1 (one) time each day. 10/31/2024 Active Encounters Date Type Department Care Team Description 11/15/2024 8:00 AM EDT Consult Plastic & Reconstructive Surgery - [address] [address] Clif Garcia DO Changing skin lesion (Primary Dx) from Last 3 Months Social History Tobacco Use Types Packs/Day Years Used Date Smoking Tobacco: Never Smokeless Tobacco: Never Tobacco Cessation:Counseling Given: Not Answered Alcohol Use Standard Drinks/Week Comments Yes 0 (1 standard drink = 0.6 oz pur e alcohol) social Sex and Gender Information Value Date Recorded Sex Assigned at Not on file Legal Sex Male 9:52 AM EDT Gender Identity Not on file Sexual Orientation Not on file Obstetrics History Last Filed Vital Signs Vital Sign Reading Time Taken Comments Blood Pressure 158/98 11/15/2024 8:03 AM EDT Pulse 44 11/15/2024 8:03 AM EDT Temperature - - Respiratory Rate - - Oxygen Saturation - - Inhaled Oxygen Concentration - - Weight 75.4 kg (166 lb 3.2 oz) 11/15/2024 8:03 A M EDT Height 166.4 cm (5' 5.5 ) 11/15/2024 8:03 AM EDT Body Mass Index 27.24 11/15/2024 8:03 AM EDT Plan of Treatment Health Maintenance Due Date Last Done Comments Hepatitis B Vaccines (1 of 3 - 19+ 3-dose series) 1987 Pneumococcal Vaccine: 50+ Years (1 of 1 - PCV) 2018 Zoster Vaccines (1 of 2) 2018 Depression Screening 04/26/2024 Cholesterol Screening (Lipid Panel) 11/10/2024 Colorectal Cancer Screening: Colonoscopy 11/10/2024 HIV Screening 11/10/2024 Hepatitis C Screening 11/10/2024 Social Influencers of Health Screening 11/10/2024 Influenza Vaccine (#1) 2024 , 02/07/2023, 04/02/2022, Additional history exists DTaP,Tdap,and Td Vaccines (2 - Td or Tdap) 05/20/2026 05/20/2016 COVID-19 Vaccine Completed 01/23/2024, , 03/19/2021, Additional history exists HIB Vaccines Aged Out No longer eligi ble based on patient's age to complete this topic HPV Vaccines Aged Out No longer eligi ble based on patient's age to complete this topic Hepatitis A Vaccines Aged Out No long er eligible based on patient's age to complete this topic IPV Vaccines Aged Out No longer eligi ble based on patient's age to complete this topic MMR Vaccines Aged Out No longer eligi ble based on patient's age to complete this topic Meningococcal ACWY Vaccine Aged Out N o longer eligible based on patient's age to complete this topic Meningococcal B Vaccine Aged Out No l onger eligible based on patient's age to complete this topic RSV Immunization Patients Under 20 months Aged Out No longer eligible based on patient's age to complete this topic Varicella Vaccines Aged Out No longer eligible based on patient's age to complete this topic Insurance [facility] Care Teams Digester Hand Relationship Specialty Start Date End Date Maribel Garner MD [address] [place] [address] PCP - General Internal Medicine 11/09/24
[2024-11-15 11:23] LABS: Appearance Urine Clear; Glucose Urine UA Negative (Negative); PH 6.0 (5.0-9.0); Specific Gravity - Urine 1.010 (1.005-1.025)
[2024-11-15 11:54] LABS: Anion Gap 10 (12-20); Blood Urea Nitrogen 15 mg/dL (9-16); Calcium 9.2 mg/dL (8.4-10.2); Carbon Dioxide 29 mmol/L (22-29); Chloride 106 mmol/L (96-108); Estimated Glomerular Filt Rate 48; Potassium 4.2 mmol/L (3.3-5.1); Sodium 141 mmol/L (135-145)
[2024-11-15 11:57] LABS: Total Protein Urine Random < 7 mg/dL (<12)
== END 2024-11-15 09:00 | disposition home or self-care (01) ==
LOC: HO.WFDLDS 08:59
PROVIDERS: Visit Provider Internal Medicine Hypertension Specialist
DX: I10 Essential (primary) hypertension (principal)
CPT/HCPCS: 36415; 80048; 81003; 82570; 84156; 84443

== ENCOUNTER 2024-11-21 09:57 | Outpatient (AMB) | payer BC, SELFPAY ==
[2024-11-21 09:58] VITALS: BP 120/70; PULSE 64; O2SAT 98; BMI 28.7
--- NOTE | 2024-11-21 09:58 | HO.NEPHOV_ITS ---
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 Recently had a coughing spell therefore he stopped lisinopril. Had poison zuleika. Recent creatinine was 1.57. 11/04/2023. Overall doing well. Repeat serum creatinine is down to 1.24 this is his baseline 11/21/24 Cr up to 1.5 PO fluid intake inadequate No urinary symptoms PFSH Medical History Normal colonoscopy (~08/12/17) Annual physical exam Surgical History Hx of vasectomy Family History Father No problems noted. Mother No problems noted. 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 Lungs entry equal no rales. Heart S1-S2 heard no gallop or rub. Abdomen soft nontender. Neuro alert awake oriented. No asterixis. Extremities no edema. Results Reviewed Results Reviewed: U PCR 0.09 Nephrology Results: Hgb, (14.0-18.0) 14.8 g/dl 05/03/24 WBC, (4.8-10.8) 6.3 X10*3/uL 05/03/24 Plt Count, (160-400) 170 X10*3/uL 05/03/24 Sodium, (135-145) 141 mmol/L 11/15/24 Potassium, (3.3-5.1) 4.2 mmol/L 11/15/24 Chloride, (96-108) 106 mmol/L 11/15/24 Carbon Dioxide, (22-29) 29 mmol/L 11/15/24 BUN, (9-16) 15 mg/dL 11/15/24 Creatinine, (0.5-1.4) 1.50 mg/dL H 11/15/24 Calcium, (8.4-10.2) 9.2 mg/dL 11/15/24 Urine Protein, (Neg-Trace) Negative mg/dL 11/15/24 Urine Creatinine 69.35 mg/dL 11/15/24 Assessment & Plan Assessment & Plan (1) History of glomerulonephritis: Comment: acute, nephrotic syndrome, 2017, follow-up with Nephrology every 6 months Code(s): Z87.448 - Personal history of other diseases of urinary system Category: Medical (2) HTN (hypertension): Comment: Lisinopril caused increase in creatinine, change to Amlodipine by nephrology Code(s): I10 - Essential (primary) hypertension Category: Medical (3) Proteinuria: Code(s): R80.9 - Proteinuria, unspecified Category: Medical Plan Middle aged man with Minimal change disease in remission NO proteinuria UA benign Baseline creatinine 1.3 to 1.4 Recently creatinine is bumped up to 1.5. Bump in creatinine was most likely due to Volume depletion . Encouraged him to increase fluid intake. Monitor blood pressure at home. Monitor Creatinine and urine protein excretion Orders: Orders Total Protein Urine Random 6 Months I10 - Essential (primary) hypertension UA and rflx microscopic 6 Months I10 - Essential (primary) hypertension Basic Metabolic Panel 6 Months I10 - Essential (primary) hypertension Creatinine Urine 6 Months I10 - Essential (primary) hypertension Coding Level of Care Code Est Pt Level 4 (65783) Diagnoses History of glomerulonephritis Z87.448 HTN (hypertension) I10 Proteinuria R80.9
--- OUTSIDE RECORDS SUMMARY | 2024-11-21 10:39 | XMS_ITS | Clinical Summary ---
Author Organization [facility] Address [address] [facility] [address] [place] [id number] Phone Care Team Providers Care Package Line Operator Name Role Phone Unknown, Unknown Primary Care [...] POS HMO POS HMO POS HMO [place] [address] [place], [place] [id number] POS Care Teams Package Line Operator Relationship Specialty Start Date End Date Unknown, Unknown, PCP - General 02/19/17 Additional Source Comments The information contained in this document represents components of the legal health record. It is not the complete legal health record.[facility]
--- OUTSIDE RECORDS SUMMARY | 2024-11-21 10:39 | XMS_ITS | Clinical Summary ---
Author Organization [facility] Address [address] [place] [address] Phone Care Team Providers Care Behavioral Modification Assistant Name Role Phone Maribel Garner MD Primary Care Provider [phone] Allergies No known active allergies Medications Multiple [...] Sigmoidoscopy 2017 Influenza Vaccine (#1) 2024 Insurance [facility] Care Teams Behavioral Modification Assistant Relationship Specialty Start Date End Date Maribel Garner MD [address] [place] [address] PCP - General 05/06/20
--- OUTSIDE RECORDS SUMMARY | 2024-11-21 10:39 | XMS_ITS | Clinical Summary ---
Author Organization [address] [place] [address] [place] [phone] Phone Care Team Providers Care Morning Nanny Name Role Phone Maribel Garner MD Primary Care Provider [phone] Allergies No known active allergies Medications amLODIPine (NORVASC) 2.5 mg tablet Take 1 tablet (2.5 mg total) by mouth 1 (one) time each day. 10/31/2024 Active Active Problems Problem Noted Date Diagnosed Date Changing skin lesion 11/16/2024 Encounters Date Type Department Care Team Description 11/15/2024 8:00 AM EDT Consult Plastic & Reconstructive Surgery - [address] [place] [address] Clif Garcia DO Changing skin lesion [...] 11/15/2024 8:03 AM EDT Plan of Treatment Upcoming Encounters Date Type Department Care Team (Late st Contact Info) Description 11/29/2024 10:00 AM EDT Procedure visit Plastic & Reconstructive Surgery - [place] [address] [place] [phone] Clif Garcia, [address] [place] [address] Health Maintenance Due Date Last Done Comments [...] on patient's age to complete this topic Procedures Procedure Name Priority Date/Time Associated Diagnosis Comments TISSUE EXAM Routine 11/15/2024 8:31 AM EDT Changing skin lesion from Last 3 Months Results * Tissue Exam (11/15/2024 8:31 AM EDT) Final Diagnosis Skin, right ear/jaw-punch biopsy: -DERMAL LYMPHOCYTIC/EOSINOPHIL IC INFILTRATE 8:42 AM EDT [facility] Comment The biopsy is partly distorted by crush artifact, limiting full evaluation. Immunohistology shows a mixture of CD3+ T-cells and CD20+ B-cells with a slight predominance of B-cells. The features are not diagnostic. Additional tissue sampling is recommended to exclude lymphoma vs dermatitis, as clinically appropriate. 8:42 AM EDT [facility] Clinical Information Changing skin lesion L98.9 8:42 AM EDT [facility] Gross Description A. Ear, Right, right jaw biopsy: Labeled ear R . Received in formalin is a 0.3 cm irizarry-white skin punch biopsy excised to a depth of 0.2 cm. The epidermis is inked red and the margin is inked blue. The specimen is submitted in toto between sponges in one cassette, one piece, multiple levels on one slide. PAMELA 8:42 AM EDT [facility] Disclaimer The immunohistochemistry stains were medically necessary and performed because the additional information was needed by the pathologist to determine immunophenotype of the infiltrate. The immunohistochemical tests and in situ hybridization tests were developed and their performance characteristics were determined by [facility]. They have not been cleared or approved by the U.S. Food and Drug Administration. The FDA has determined that such clearance or approval is not necessary. These tests are used for clinical purposes. They should not be regarded as investigational or for research. This laboratory is certified under the Clinical Laboratory Improvement Amendments of 1988 (CLIA) as qualified to perform high complexity clinical laboratory testing. (controls appropriate) Unless otherwise specified, all tissue is 10% NB formalin fixed and paraffin embedded. 8:42 AM EDT [facility] Tissue Right ear structure / Unknown Non-blood Collection / Unknown 11/15/2024 8:31 AM EDT 11/15/2024 8:33 AM EDT us Clif Garcia DO LAB PATHOLOGY ORDERABLES Fin al Result [facility] [address] [place] [address], from Last 3 Months Insurance [facility] Care Teams Morning Nanny Relationship Specialty Start Date End Date Maribel Garner MD [address] [place] [address] PCP - General Internal Medicine 11/09/24
== END 2024-11-21 10:09 | disposition home or self-care (01) ==
LOC: HO.HKA 09:57
PROVIDERS: PCP Internal Medicine; Visit Provider Internal Medicine Hypertension Specialist
DX: Z87.448 Personal history of other diseases of urinary system (principal); I10 Essential (primary) hypertension; R80.9 Proteinuria, unspecified
CPT/HCPCS: 99214

== ENCOUNTER 2025-02-14 07:53 | Outpatient (REF) | payer BC, SELFPAY ==
--- OUTSIDE RECORDS SUMMARY | 2025-02-14 07:56 | XMS_ITS | Clinical Summary ---
Author Organization [facility] Address [address] [facility] [address] [place] [phone] Phone Care Team Providers Care Career Education Teacher Name Role Phone Unknown, Unknown Primary Care Provider Nena lee Encounters Date Type Department Care Team Description 12/08/2024 9:52 AM EDT - 12/08/2024 11:59 PM EDT Hospital Encounter [facility] PATHOLOGY VIRTUAL DEPARTMENT [address] [place] [phone] Discharge Disposition: Home or Self Care from Last 3 Months Social History Tobacco [...] 2018 ZOSTER VACCINES (1 of 2) 2018 INFLUENZA VACCINE (#1) 2024 01/24/2020 COVID-19 VACCINE (3 - 2024-2 6 season) 2024 08/07/2020, 07/17/2020 Adult Td,Tdap Booster 05/20/2026 05/20/2016 RSV VACCINE (1 - 1-dose 75+ series) 2043 HEPATITIS A VACCINES Aged Out No long [...] this topic Medical Devices Not on file Procedures Procedure Name Priority Date/Time Associated Diagnosis Comments ANATOMIC PATHOLOGY Routine 12/08/2024 12 :00 AM EDT OUTSIDE PATHOLOGY REVIEW Routine 12/08/2024 12:00 AM EDT from Last 3 Months Results * Outside Pathology Review (12/08/2024 12:00 AM EDT) 12/08/2024 12/08/2024 9:5 4 AM EDT Narrative SEE NARRATIVE - 12/26/2024 11:38 [place] [address] Surgical Pathology Outside Consultation Patient Name: TRISTIN PAN : 1970 (Age: 54) Sex: M Location: [facility] Institution: [facility] Date of Reported: 12/26/2024 11:38 Results To: Paul Cifuentes MD FINAL PATHOLOGIC DIAGNOSIS: Consult materials received from [facility], [place], [place] on 12/06/24. A. 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 Note: Sections show large deep dermal to subcutaneous aggregates of lymphoid cells predominantly in a perifollicular and periadnexal distribution. The epidermis is uninvolved. The lymphoid infiltrate is composed of small lymphocytes, small germinal centers containing tingible body macrophages, and large, irregular aggregates of medium-sized atypical lymphoid cells with lobated, irregular nuclei and occasional prominent nucleoli. Immunohistochemical stains performed at the outside laboratory and reviewed at [facility] reveal numerous CD20+ B cells throughout the infiltrate in roughly equal numbers with CD3+ T cells. The B cells are present in a nodular and diffuse distribution. Most of the small cells in the lymphoid infiltrate stain positively for BCL2, consistent with reactive lymphocytes. BCL6+, CD10+ (dim), BCL2- large cells are present in a nodular and interstitial distribution consistent with proliferations of follicle center B cells. There is an associated elevated Ki-67 proliferation index, in a pattern unusual for reactive lymphoid follicles. Additional immunohistochemical stains performed at [facility] show that the BCL6+ BCL2- CD20+ lymphoid aggregates are encompassed by expanded and focally irregularly shaped CD21+ follicular dendritic cell meshworks. MUM-1 highlights scattered plasma cells and activated B cells without significant staining of the BCL6+ cells. Ultra-sensitive kappa and lambda In-situ hybridization reveals that the plasma cells appear polytypic, but the areas with BCL6+ cells appear to be kappa-restricted. In summary, this is a diagnostically challenging case with some findings consistent with an exuberant reactive lymphoid hyperplasia. However, there are features that support a diagnosis of B cell lymphoma, including the density of the CD20+ B cell infiltrate, the irregularly shaped aggregates and interstitial localization of BCL6+ B cells (naked lymphoid follicles), the irregularly shaped meshworks of CD21+ follicular dendritic cells corresponding to the BCL6+ proliferation, the pattern of Ki67+ cells and the suggestion of kappa light chain restriction in the aggregates of BCL6+ cells. 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 This case has been previewed by Dr. Faviola Gómez, fellow in Dermatopathology. Electronically Signed Out By Esme Stewart MD Consulting Pathologist(s): Surya Sadler MD CLINICAL HISTORY Changing skin lesion. SPECIMENS SUBMITTED: A: SKIN, RIGHT BAPTISM, EXCISION ([id number], A2; 11/29/24; [id number]) SLIDE-BLOCK DESCRIPTION: Consult materials received from [place], [place] on 12/06/24. A. SKIN, RIGHT BAPTISM, EXCISION ([id number], A2; 11/29/24; [id number]): Stained Slides: 8 Unstained slides: 0 Blocks: 0 Received from [place], [place] on 12/18/24. In addition to previously described material, 1 block, which are labeled [id number] A2 and corresponds to the accompanying pathology report bearing the patient's name. A. SKIN, RIGHT BAPTISM, EXCISION ([id number], A2; 11/29/24; [id number]): Stained Slides: 0 Unstained slides: 0 Blocks: 1 Private Consultation Immunohistochemical and in-situ hybridization tests performed at [facility] have been developed and their performance characteristics determined by the Immunohistochemistry Laboratories in the Department of Pathology at [facility]. They have not been cleared or approved by the U.S.Food and Drug Administration (FDA); the FDA has determined that such clearance or approval is not necessary. Paul Cifeuntes MD PATHOLOGY ORDERABLES Final Result SEE NARRATIVE * Anatomic Pathology (12/08/2024 12:00 AM EDT) [place] [address] Surgical Pathology Outside Consultation Patient Name: TRISTIN PAN : 1970 (Age: 54) Sex: M Location: [facility] Institution: [facility] Date of Reported: 12/26/2024 11:38 Results To: Paul Cifuentes MD FINAL PATHOLOGIC DIAGNOSIS: Consult materials received from [place], [place] on 12/06/24. A. 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 Note: Sections show large deep dermal to subcutaneous aggregates of lymphoid cells predominantly in a perifollicular and periadnexal distribution. The epidermis is uninvolved. The lymphoid infiltrate is composed of small lymphocytes, small germinal centers containing tingible body macrophages, and large, irregular aggregates of medium-sized atypical lymphoid cells with lobated, irregular nuclei and occasional prominent nucleoli. Immunohistochemical stains performed at the outside laboratory and reviewed at [facility] reveal numerous CD20+ B cells throughout the infiltrate in roughly equal numbers with CD3+ T cells. The B cells are present in a nodular and diffuse distribution. Most of the small cells in the lymphoid infiltrate stain positively for BCL2, consistent with reactive lymphocytes. BCL6+, CD10+ (dim), BCL2- large cells are present in a nodular and interstitial distribution consistent with proliferations of follicle center B cells. There is an associated elevated Ki-67 proliferation index, in a pattern unusual for reactive lymphoid follicles. Additional immunohistochemical stains performed at [facility] show that the BCL6+ BCL2- CD20+ lymphoid aggregates are encompassed by expanded and focally irregularly shaped CD21+ follicular dendritic cell meshworks. MUM-1 highlights scattered plasma cells and activated B cells without significant staining of the BCL6+ cells. Ultra-sensitive kappa and lambda In-situ hybridization reveals that the plasma cells appear polytypic, but the areas with BCL6+ cells appear to be kappa-restricted. In summary, this is a diagnostically challenging case with some findings consistent with an exuberant reactive lymphoid hyperplasia. However, there are features that support a diagnosis of B cell lymphoma, including the density of the CD20+ B cell infiltrate, the irregularly shaped aggregates and interstitial localization of BCL6+ B cells (naked lymphoid follicles), the irregularly shaped meshworks of CD21+ follicular dendritic cells corresponding to the BCL6+ proliferation, the pattern of Ki67+ cells and the suggestion of kappa light chain restriction in the aggregates of BCL6+ cells. 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 This case has been previewed by Dr. Faviola Gómez, fellow in Dermatopathology. Electronically Signed Out By Esme Stewart MD Consulting Pathologist(s): Surya Sadler MD CLINICAL HISTORY Changing skin lesion. SPECIMENS SUBMITTED: A: SKIN, RIGHT BAPTISM, EXCISION ([id number], A2; 11/29/24; [id number]) SLIDE-BLOCK DESCRIPTION: Consult materials received from [place], [place] on 12/06/24. A. SKIN, RIGHT BAPTISM, EXCISION ([id number], A2; 11/29/24; [id number]): Stained Slides: 8 Unstained slides: 0 Blocks: 0 Received from [place], [place] on 12/18/24. In addition to previously described material, 1 block, which are labeled [id number] A2 and corresponds to the accompanying pathology report bearing the patient's name. A. SKIN, RIGHT BAPTISM, EXCISION ([id number], A2; 11/29/24; [id number]): Stained Slides: 0 Unstained slides: 0 Blocks: 1 Private Consultation Immunohistochemical and in-situ hybridization tests performed at [facility] have been developed and their performance characteristics determined by the Immunohistochemistry Laboratories in the Department of Pathology at [facility]. They have not been cleared or approved by the U.S.Food and Drug Administration (FDA); the FDA has determined that such clearance or approval is not necessary. [facility] Clinical History Changing skin lesion. [facility] Final Diagnosis Consult materials received from [place], [place] on 12/06/24.A. 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 The epidermis is uninvolved. The lymphoid infiltrate is composed of small lymphocytes, small germinal centers containing tingible body macrophages, and large, irregular aggregates of medium-sized atypical lymphoid cells with lobated, irregular nuclei and occasional prominent nucleoli.Immunohistoch emical stains performed at the outside laboratory and reviewed at [facility] reveal numerous CD20+ B cells throughout the infiltrate in roughly equal numbers with CD3+ T cells. The B cells are present in a nodular and diffuse distribution. Most of the small cells in the lymphoid infiltrate stain positively for BCL2, consistent with reactive lymphocytes. BCL6+, CD10+ (dim), BCL2- large cells are present in a nodular and interstitial distribution consistent with proliferations of follicle center B cells. There is an associated elevated Ki-67 proliferation index, in a pattern unusual for reactive lymphoid follicles. Additional immunohistochemical stains performed at [facility] show that the BCL6+ BCL2- CD20+ lymphoid aggregates are encompassed by expanded and focally irregularly shaped CD21+ follicular dendritic cell meshworks. MUM-1 highlights scattered plasma cells and activated B cells without significant staining of the BCL6+ cells. Ultra-sensitive kappa and lambda In-situ hybridization reveals that the plasma cells appear polytypic, but the areas with BCL6+ cells appear to be kappa-restricted. In summary, this is a diagnostically challenging case with some findings consistent with an exuberant reactive lymphoid hyperplasia. However, there are features that support a diagnosis of B cell lymphoma, including the density of the CD20+ B cell infiltrate, the irregularly shaped aggregates and interstitial localization of BCL6+ B cells (naked lymphoid follicles), the irregularly shaped meshworks of CD21+ follicular dendritic cells corresponding to the BCL6+ proliferation, the pattern of Ki67+ cells and the suggestion of kappa light chain restriction in the aggregates of BCL6+ cells. 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 Faviola Gómez, fellow in Dermatopathology. [facility] Slide-Block Description Consult materials received from [place], [place] on 12/06/24. A. SKIN, RIGHT BAPTISM, EXCISION ([id number], A2; 11/29/24; [id number]): Stained Slides: 8 Unstained slides: 0 Blocks: 0 Received from [place] on 12/18/24. In addition to previously described material, 1 block, which are labeled [id number] A2 and corresponds to the accompanying pathology report bearing the patient's name. A. SKIN, RIGHT BAPTISM, EXCISION ([id number], A2; 11/29/24; [id number]): Stained Slides: 0 Unstained slides: 0 Blocks: 1 [facility] Conversion Type 12/08/2024 9:54 AM EDT us Paul Cifuentes MD PATHOLOGY ORDERABLES Final Result [facility] [address] [place] [address] from Last [address] [place] [address] [place] [address] [facility] Care Teams Career Education Teacher Relationship Specialty Start Date End Date Unknown, Unknown, PCP - General 02/19/17 Additional Source Comments The information contained in this document represents components of the legal health record. It is not the complete legal health record.[facility]
--- OUTSIDE RECORDS SUMMARY | 2025-02-14 07:56 | XMS_ITS | Clinical Summary ---
Author Organization [facility] Address [address] [place] [address] Phone Care Team Providers Care Radius Corner Machine Operator Name Role Phone Maribel Garner MD Primary Care Provider [phone] Allergies No known active allergies Medications Multiple [...] Sigmoidoscopy 2017 Influenza Vaccine (#1) 2024 Insurance [facility] Care Teams Radius Corner Machine Operator Relationship Specialty Start Date End Date Maribel Garner MD [address] [place] [address] PCP - General 05/06/20
--- OUTSIDE RECORDS SUMMARY | 2025-02-14 07:56 | XMS_ITS | Clinical Summary ---
Author Organization [address] [place] [address] [place] [phone] Phone Care Team Providers Care Laborer Chemical Processing Name Role Phone Maribel Garner MD Primary Care Provider [phone] Allergies No known active allergies Medications amLODIPine (NORVASC) 2.5 mg tablet Take 1 tablet (2.5 mg total) by mouth 1 (one) time each day. 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, CMS/HCC V28) (Primary Dx) 12/06/2024 11:30 AM EDT Office Visit [facility] Re[facility] Surgery [address] [phone] Clif Garcia DO Changing skin lesion (Primary Dx) 11/29/2024 10:00 AM EDT Procedure visit Plastic & Reconstructive [address] [place] [phone] Clif Garcia DO Changing skin lesion (Primary Dx) 11/15/2024 8:00 AM EDT Consult Plastic & Reconstructive Surgery - [place] [address] [facility] [address] [place] [phone] Clif Garcia DO Changing skin lesion (Primary [...] on file Sexual Orientation Not on file Travel History Travel Start Travel End [place] 01/21/2025 01/25/2025 Obstetrics History Last Filed Vital Signs Vital Sign Reading Time Taken Comments Blood Pressure 142/57 01/31/2025 1:08 PM EDT Pulse 63 01/31/2025 1:08 PM EDT Temperature 37.1 C (98.7 F) 01/31/2025 1:08 PM EDT Respiratory Rate - - Oxygen Saturation 96% 01/31/2025 1:08 PM EDT Inhaled Oxygen Concentration - - Weight 76.7 kg (169 lb) 01/31/2025 1:08 PM EDT Height 165.1 cm (5' 5 ) 01/31/2025 1:08 PM EDT Body Mass Index 28.12 01/31/2025 1:08 PM EDT Plan of Treatment Upcoming Encounters Date Type Department Care Team (Late st Contact Info) Description 02/14/2025 9:00 AM EDT Appointment [facility] PET Scan [address] [place] [phone] 02/28/2025 10:15 AM EST Office Visit [facility] Hematology Oncology [address] [place] [phone] All Pope MD [address] [place] [phone] 03/08/2025 1:30 PM EST Appointment [facility] Radiation Oncology [address] [place] [phone] 03/08/2025 2:00 PM EST Appointment [facility] Radiation Oncology [address] [place] [phone] Orlando Bliss MD [address] [place] [address] Health Maintenance Due Date Last Done Comments Colorectal Cancer Screening: Colonoscopy 1968 Hepatitis B Vaccines (1 of 3 - 19+ 3-dose series) 1987 Pneumococcal Vaccine: 50+ Years (1 of 2 - PCV) 1987 Zoster Vaccines (1 of 2) 1987 RSV Immunization Adult Patients (1 - Risk 50-74 years 1-dose series) 2018 Depression Screening 04/26/2024 Cholesterol Screening (Lipid Panel) 11/10/2024 HIV Screening 11/10/2024 Hepatitis C Screening 11/10/2024 Social Influencers of Health Screening 11/10/2024 COVID-19 Vaccine (6 - Pfizer risk 2023- season) 2024 01/23/2024, 02/07/2023, 03/19/2021, Additional history exists Influenza Vaccine (#1) 2024 , 02/07/2023, 04/02/2022, Additional history exists DTaP,Tdap,and Td Vaccines (2 - Td or Tdap) 05/20/2026 05/20/2016 HIB Vaccines Aged Out No longer eligi [...] Date/Time Associated Diagnosis Comments TISSUE EXAM Routine 11/29/2024 10:11 AM EDT Changing skin lesion FLOW CYTOMETRY Routine 11/29/2024 10:11 AM EDT Changing skin lesion TISSUE EXAM Routine 11/15/2024 8:31 AM EDT Changing skin lesion from Last 3 Months Results * Flow cytometry (11/29/2024 10:11 AM EDT) Flow Cytometry Interpretation Skin, right jainism, flow cytometry: A limited (low cellularity) flow cytometric evaluation was performed. There is no monotypic B cell population identified. Most of the lymphocytes (approximately two thirds) are CD3-positive T cells without diagnostic phenotypic aberrancy. There is no discrete population of [id number] blasts identified. See comment. Comment: The overall findings show no monotypic B cell population. Most of the lymphocyte are CD3-positive T cells without diagnostic phenotypic aberrancy. The flow cytometry findings are not diagnostic of a lymphoproliferative disorder and are compatible with a reactive lymphoid population in the tested specimen. Correlation with morphologic and immunohistochemical findings in the skin excision is recommended. (See separate report, [id number], is recommended.) Please note that myeloid disorders cannot be reliably excluded by flow cytometry. Clinical correlation recommended. SPECIMEN: Face skin lesion ([id number]) VIABILITY: 84.5% TOTAL CELL YIELD: 0.7x106/mL IMMUNOPHENOTYPIC FINDINGS: Lymphocytes are 97.8% of total. T cells are 64.6% of total (66.2% of cells in lymphocyte gate) without diagnostic phenotypic aberrancy (CD4:CD8 ratio is 3.2. B cells are 31.8% of total (32.5% of cells in lymphocyte gate) and are polytypic (kappa:lambda ratio = 1.6). The B cells show no significant expression of CD5, CD10, or CD38 and show no overexpression of CD200. Granulocytes are 0.3% of total and monocytic cells are 0.9% of total. There is no significant [id number]-[id number] blast population seen. REVIEW OF CORTEZ-STAINED CYTOSPIN: The cytospin shows a predominance of small lymphocytes. Some larger lymphoid cells with irregular nuclear contours are noted. Rare cells with medium to large rounded nuclei with evenly dispersed chromatin and scant cytoplasm are noted.. Antibodies (17 markers): CD2, CD3, CD4, CD5, CD7, CD8, CD10, CD19, CD20, CD34, CD38, CD45, CD56, CD200, Wautec, Lambda, TCR??. 12/01/2024 3:09 PM EDT [facility] Disclaimer This test was developed and its performance characteristics determined by [facility]. It has not been cleared or approved by U.S. Food and Drug Administration. The FDA does not require this test to go through premarket FDA review. This test is used for clinical purposes. It should not be regarded as investigational or for research. This laboratory is certified under Clinical Laboratory Improvement Amendments of 1988 (CLIA) as qualified to perform high complexity clinical laboratory testing. 12/01/2024 3:09 PM EDT [facility] Tissue Face structure / Unknown Non-blood Collection / Unknown 11/29/2024 10:11 AM EDT 11/29/2024 11:13 AM EDT Clif Garcia DO LAB BLOOD ORDERABLES Final R esult [facility] [address] [place] [address], * Tissue exam (11/29/2024 10:11 AM EDT) Only the most recent of2 resultswithin the time period is included. Correction History Report amended to reflect behavioral consultant diagnosis. (Original diagnosisis retained in italics.) Dr. Martín Garcia is notified of the amended report by Dr. Gopal Cifuentes via secure text on 12/27/2024 at 8:11 a.m. 8:16 AM EDT [facility] Addendum This addendum was created in error. See amended report. 8:16 AM [facility] Addendum electronically signed by Paul Cifuentes MD on 12/26/2024 at 12:58 PM Final Diagnosis NOTE: THIS REPORT IS AMENDED TO REFLECT THE RESULT OF A SECOND OPINION REGARDING THE NATURE OF THIS LYMPHOID INFILTRATE FROM DR. ESME STEWART AT THE [facility]. (The text of the original report is retained below in italics.) FINAL SPINE SURGEON DIAGNOSIS: A. 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 Note: Sections show large deep dermal to subcutaneous aggregates of lymphoid cells predominantly in a perifollicular and periadnexal distribution. The epidermis is uninvolved. The lymphoid infiltrate is composed of small lymphocytes, small germinal centers containing tingible body macrophages, and large, irregular aggregates of medium-sized atypical lymphoid cells with lobulated, irregular nuclei and occasional prominent nucleoli. Immunohistochemical stains performed at the outside laboratory and reviewed at [facility] reveal numerous CD20+ B cells throughout the infiltrate in roughly equal numbers with CD3+ T cells. The B cells are present in a nodular and diffuse distribution. Mot of the small cells in the lymphoid infiltrate stain positively for BCL2, consistent with reactive lymphocytes. BCL6+, CD10+ (dim), BCL2- large cells are present in a nodular and interstitial distribution consistent with proliferations of follicle center B cells. There is an associated elevated Ki-67 proliferation index, in a pattern unusual for reactive lymphoid follicles. Additional immunohistochemical stains performed at [facility] show that the BCL6+ BCL2- CD20+ lymphoid [...] diagnosis of primary cutaneous follicle center lymphoma. Electronically Signed out by Esme Stewart MD Report Date: 12/26/2024 (Full report on file) Original report diagnosis follows: Skin, right jainism, excision: - Dense B cell-rich lymphoid infiltrate including occasional lymphoid follicles. (See note.) - Flow cytometric evaluation was attempted and shows no monotypic B cell population and no aberrant T cell population. - Immunohistochemical studies were performed to further characterize the lymphoid infiltrate including the lymphoid follicles and the results are as follows: CD3: Majority of small lymphocytes immunoreactive. CD10: Few cells in follicle centers immunoreactive. CD20: Many small lymphocytes immunoreactive, including most cells within follicles. BCL2: Most lymphocytes immunoreactive; cells within lymphoid follicles appear negative. BCL6: Most cells within lymphoid follicles are immunoreactive. Ki-67: Proliferative index in some follicles lower than expected. Interpretation: The immunohistochemical studies show a mixture of B cells and T cells. The B cells are concentrated in lymphoid follicles. Follicle center cells express BCL6 but do not clearly express BCL2. Some follicles appear to have a low proliferative index with Ki-67, although this may at least partly be related to the portion of follicle being stained. Note: This lymphoid proliferation is dense, has an unusually high number of B cells, and includes occasional lymphoid follicles that lack definitive polarization. There is no definitive coexpression of BCL2, the follicle centers, a finding that is typical of reactive lymphoid follicles, but have a low proliferative index when compared to what is usually seen in germinal centers. Flow cytometry shows that the B cell population in this specimen is polytypic. Although the overall findings suggest a reactive cause for this patient's lymphoid proliferation, because of the dense nature of the infiltrate and the low proliferative index in the lymphoid follicles, tissue will be sent out to Dr. Esme Stewart for a second opinion regarding the possibility of a form of cutaneous lymphoproliferative disorder. Skin, right jainism, flow cytometry ([id number]): No monotypic B cell population is identified. Most of the lymphocytes (approximately two thirds) are CD3-positive T cells without diagnostic phenotypic aberrancy. There is no discrete population of SI41-[id number] blasts identified. See comment. Comment: The overall findings show no monotypic B cell population. Most of the lymphocyte are CD3-positive T cells without diagnostic phenotypic aberrancy. The flow cytometry findings are not diagnostic of a lymphoproliferative disorder and are compatible with a reactive lymphoid population in the tested specimen. Correlation with morphologic and immunohistochemical findings in the skin excision is recommended. (See separate report, [id number], is recommended.) Please note that myeloid disorders cannot be reliably excluded by flow cytometry. Clinical correlation recommended. SPECIMEN: Face skin lesion ([id number]) VIABILITY: 84.5% TOTAL CELL YIELD: 0.7x106/mL IMMUNOPHENOTYPIC FINDINGS: Lymphocytes are 97.8% of total. T cells are 64.6% of total (66.2% of cells in lymphocyte gate) without diagnostic phenotypic aberrancy (CD4:CD8 ratio is 3.2. B cells are 31.8% of total (32.5% of cells in lymphocyte gate) and are polytypic (kappa:lambda ratio = 1.6). The B cells show no significant expression of CD5, CD10, or CD38 and show no overexpression of CD200. Granulocytes are 0.3% of total and monocytic cells are 0.9% of total. There is no significant SX16-dptlwhhq blast population seen. REVIEW OF CORTEZ-STAINED CYTOSPIN: The cytospin shows a predominance of small lymphocytes. Some larger lymphoid cells with irregular nuclear contours are noted. Rare cells with medium to large rounded nuclei with evenly dispersed chromatin and scant cytoplasm are noted.. Antibodies (17 markers): CD2, CD3, CD4, CD5, CD7, CD8, CD10, CD19, CD20, CD34, CD38, CD45, CD56, CD200, Wautec, Lambda, TCR??. 5 8:[address] [facility] Amendment electronically signed by Paul Cifuentes MD on 12/27/2024 at 8:16 AM Comment:Corrected result: Pr eviously reported on 12/26/2024 at 1258 EDT. Comment Supervisor Ski Production slide(s) from this case have been presented at Anatomic Pathology Intradepartmental Review Conference on 11/30/24. 5 8:16 AM EDT [facility] Clinical Information Changing skin lesion (L98.9) 5 8:16 AM EDT [facility] Gross Description A. Face, excision lesion right jainism ink ar 12: Labeled face . Received fresh, is a 1.8 x 0.6 x 0.5 cm white skin ellipse and subcutis with ink present at one tip per the requisition 12 o'clock . There is a 0.2 cm scaly focus of hemorrhage/depression towards 9 o'clock. The 12-3-6 o'clock aspect is inked black, the 6-9 o'clock aspect is inked green and the 9-12 o'clock aspect is inked blue. The specimen is sectioned sequentially from 12-6 o'clock. One central slice is placed in RPMI and submitted to [place], [place], flow cytometry lab, for flow cytometric studies. The balance of the specimen is submitted in two cassettes. 1-12 and 6 o'clock tips, two pieces 2-central sections, five pieces TS 5 8:16 AM EDT [facility] Disclaimer NOTE: The immunohistochemical tests and in situ hybridization tests were developed and their performance characteristics were determined by [facility]. They have not been [...] 10% NB formalin fixed and paraffin embedded. 5 8:16 AM EDT [facility] Tissue Face structure / Unknown Non-blood Collection / Unknown 11/29/2024 10:11 AM EDT 11/29/2024 10:12 AM EDT Clif Garcia DO LAB PATHOLOGY ORDERABLES Jaycob leo Result - Final [facility] [address] [place] [address], from Last [address] [facility] Care Teams Laborer Chemical Processing Relationship Specialty Start Date End Date Maribel Garner MD [address] [place] [phone] PCP - General Internal Medicine 11/09/24
[2025-02-14 11:24] LABS: MANUAL DIFF FLAG NO
[2025-02-14 11:29] LABS: Hematocrit 42.9 % (42.0-52.0); Hemoglobin 15.3 g/dl (14.0-18.0); Imm Gran Abs Auto 0.01 X10*3/uL (0.00-0.03); Imm Gran Pct Auto 0.2 % (0.0-0.4); Lymphocytes Absolute Auto 1.7 X10*3/uL (1.2-4.9); Mean Corpuscular HGB Conc 35.7 g/dl (31.0-36.0); Mean Corpuscular Hemoglobin 32.3 pg (27.0-33.0); Mean Corpuscular Volume 90.5 fL (80.0-98.0); NRBC Abs Auto 0.000 X10*3/uL (0.0-0.012); NRBC Pct Auto 0.0 /100WBC (0.0-0.2); Platelet Count 167 X10*3/uL (160-400); Red Blood Count 4.74 X10*6/uL (4.60-5.80); White Blood Count 6.1 X10*3/uL (4.8-10.8)
[2025-02-14 12:05] LABS: PSA,Total (Free>4and<10) 0.60 ng/mL (0.00-4.00)
[2025-02-14 12:13] LABS: Alanine Aminotransferase 29 U/L (0-40); Albumin Level 4.7 g/dL (3.5-5.0); Alkaline Phosphatase 58 U/L (39-117); Anion Gap 10 (12-20); Aspartate Amino Transferase 32 U/L (5-37); Blood Urea Nitrogen 16 mg/dL (9-16); Calcium 9.4 mg/dL (8.4-10.2); Carbon Dioxide 29 mmol/L (22-29); Chloride 103 mmol/L (96-108); Cholesterol 222 mg/dL (<200); Estimated Glomerular Filt Rate 50; HDL Cholesterol 38 mg/dL (>40); Potassium 4.3 mmol/L (3.3-5.1); Sodium 138 mmol/L (135-145); Total Protein 7.0 g/dL (6.5-8.0); Triglycerides 113 mg/dL (<150)
[2025-02-14 14:12] LABS: Appearance Urine Clear; Glucose Urine UA Negative (Negative); PH 7.0 (5.0-9.0); Specific Gravity - Urine <= 1.005 (1.005-1.025)
== END 2025-02-14 07:54 | disposition home or self-care (01) ==
LOC: HO.WFDLDS 07:53
PROVIDERS: Referring Provider Internal Medicine Hypertension Specialist; Visit Provider Internal Medicine
DX: Z00.00 Encounter for general adult medical examination without abnormal findings (principal); I10 Essential (primary) hypertension; Z12.5 Encounter for screening for malignant neoplasm of prostate
CPT/HCPCS: 36415; 80053; 80061; 81001; 84153; 85025

== ENCOUNTER 2025-02-21 09:59 | Outpatient (AMB) | payer BC, SELFPAY ==
--- OUTSIDE RECORDS SUMMARY | 2025-02-14 08:23 | XMS_ITS | Encounter Summary ---
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, CMS/HCC V28) Procedures PET CT Whole Body Initial All Pope MD [address] [place] [phone] Phone: tel: fax: [address] [phone] Phone: tel: Referral ID Status Reason Start Date Expiration Date Visits Re quested Visits Authorized [id number] Closed 02/04/2025 02/04/2026 1 1 Reason for Visit * Imaging (Routine) - Closed Specialty Diagnoses / Procedures Referred By Contmonica t Referred To Contact Radiology Diagnoses Primary cutaneous follicular center B-cell lymphoma (CMS/HCC V24, [facility]/HCC V28) Procedures PET CT Whole Body Initial All Pope MD [address] [place] [phone] Phone: tel: fax: [address] [phone] Phone: tel: Referral ID Status Reason Start Date Expiration Date Visits Re quested Visits Authorized [id number] Closed 02/04/2025 02/04/2026 1 1 Encounter Details Date Type Department Care Team (Latest Contact Info) Description 02/14/2025 8:23 AM EDT Hospital Encounter [facility] PET Scan [address] [place] [phone] Primary cutaneous follicular center B-cell lymphoma ([facility] V24, [facility] V28) Social History Tobacco Use Types Packs/Day Years [...] file Travel History Travel Start Travel End [place] 01/21/2025 01/25/2025 documented as of this encounter Plan of Treatment Upcoming Encounters Date Type Department Care Team (Late st Contact Info) Description 02/28/2025 10:15 AM EST Office Visit [facility] Hematology Oncology [address] [place] [phone] All Pope MD [address] [place] [phone] 03/08/2025 1:30 PM EST Appointment [facility] Radiation Oncology [address] [place] [phone] 03/08/2025 2:00 PM EST Appointment [facility] Radiation Oncology [address] [place] [phone] Orlando Bliss MD [address] [place] [phone] Pending Results Name Type Priority Associated Diagnoses Date /Time PET CT Whole Body Initial Imaging Routine Primary cutaneous follicular center B-cell lymphoma ([facility] V24, [facility] V28) 02/14/2025 10:34 AM EDT Scheduled Orders Name Type Priority Associated Diagnoses Orde r Schedule PET CT Whole Body Initial Imaging Routine Primary cutaneous follicular center B-cell lymphoma ([facility] V24, [facility] V28) Once for 1 Occurrences starting 02/14/2025 until 02/14/2025 documented as of this encounter Visit Diagnoses Diagnosis Primary cutaneous follicular center B-cell lymphoma ([facility] V24, [facility] V28) documented in this encounter Administered Medications Inactive Administered Medications - up to 3 most recent administrations Medication Order MAR Action Action Date Dose Rate Site F-18 FDG pet diag radio-isotope injection 13.8 millicurie 13.8 millicurie, intravenous, Once in imaging, Starting on Wed02/14/25 at 0900, For 1 dose Given 02/14/2025 9:00 AM EDT 13.8 millicuries documented in this encounter Orders Medications Ordered That Hammad ht Not Have Been Administered Count Last Ordered Date First Ordered Date F-18 FDG pet diag radio-isot ope injection 13.8 millicurie 1 02/14/2025 documented in this encounter Care Teams Enterprise Software Engineer Relationship Specialty Start Date End Date Maribel Garner MD [address] [place] [phone] PCP - General Internal Medicine 11/09/24 documented as of this encounter
[2025-02-21 10:03] VITALS: BP 134/80; PULSE 58; RESP 16; TEMP 36.9; O2SAT 98; BMI 29.2
--- NOTE | 2025-02-21 10:03 | MHC.PC.OV ---
Vital Signs 02/21/25 10:03 Height 5 ft 4 in Weight 170 lb BMI 29.2 BP 134/80 Blood Pressure Location Lt brachial Position Sitting Respiration 16 Pulse 58 Pulse Source Pulse Oximeter Temp 98.4 F Temp Source Oral Pulse Oximetry (%) 98 Oxygen Delivery Method Room Air Intake Visit Reasons: PE Intake Note: Pt is here today for PE. Allergies No Known Allergies (No Known Allergies*) Allergy (Verified 02/21/25 10:22) Medication List - Last Reconciled 02/21/25 by Maribel Garner MD amlodipine 2.5 mg PO DAILY Tobacco use date assessed: 02/21/25 Dental Screening Dental Screen Date: 09/22/24 HPI PE HPI Details Patient presents for physical. Hypertension is controlled on amlodipine. 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 Patient was seen by Dr. Pope at [place] and had a PET scan 1 week ago results are still pending. Patient will have radiation therapy if PET scan is negative. [facility] Medical History (Updated 02/21/25 @ 15:20 by Maribel Garner MD) History of glomerulonephritis Cutaneous lymphoma Normal colonoscopy (~08/12/17) Annual physical exam Surgical History Hx of vasectomy Family History Father No problems noted. Mother No problems noted. 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 1. Little interest or pleasure in doing things: not at all 2. Feeling down, depressed, or hopeless: not at all 3. Trouble falling or staying asleep, or sleeping too much: not at all 4. Feeling tired or having little energy: not at all 5. Poor appetite or overeating: not at all 6. Feeling bad about yourself - or that you are a failure or have let yourself or your family down: not at all 7. Trouble concentrating on things, such as reading the newspaper or watching television: not at all 8. Moving or speaking so slowly that other people could have noticed. Or the opposite - being so fidgety or restless that you have been moving around a lot more than usual: not at all 9. Thoughts that you would be better off or of hurting yourself in some way: not at all Total score: 0 Depression Screening Interpretation: Negative Depression Screening Done: Yes Source: Developed by Drs. Surya Gannon, Zee Harden, Roldan Martinez and colleagues, with an educational zak from [employer]. Thrive Questionnaire Date Thrive assessed: 09/22/24 I am a: Patient What is your living situation today?: I have a steady place to live Within the past 12 months, did the food you bought not last and you didn't have the money to get more?: Never true Within the past 12 months, did you worry whether your food would run out before you got money to buy more?: Never true Do you have trouble paying for medicines?: No Do you have trouble getting transportation to medical appointments?: No Do you have trouble paying your heating and electricity bill?: No Do you have trouble taking care of your child, family member or friend?: No Do you have trouble with day-to-day activities such as bathing, preparing meals, shopping, managing finances, etc.?: No Are you currently unemployed and looking for a job?: No Are you interested in more education?: No Please select the resources that you would like help with: None Currently or been in a relationship where the following occur: No concerns reported THRIVE Score: 0 PADMA-7 AMB Questionnaire PADMA-7 Date PADMA - 7 assessed: 09/22/24 Feeling nervous, anxious, or on edge: 0 = Not at all Not being able to stop or control worryin = Not at all Worrying too much about different things: 0 = Not at all Trouble relaxin = Not at all Being so restless that it is hard to sit still: 0 = Not at all Becoming easily annoyed or irritable: 0 = Not at all Feeling afraid as if something awful might happen: 0 = Not at all Total PADMA-7 score (0-4 normal; 5-9 mild; 10-14 moderate; 15-21 severe): 0 Source: Developed by Drs. Surya Gannon, Zee Harden, Roldan Martinez and colleagues, with an educational zak from [employer]. Review of Systems Const All systems reviewed & are unremarkable except as noted in HPI and below Eyes Reports no additional complaints ENT Reports no additional complaints Card Reports no additional complaints Resp Reports no additional complaints GI Reports no additional complaints Reports no additional complaints Physical exam (Primary Care) Vital Signs: Last Vital Signs Temp 98.4 F 02/21/25 10:03 Pulse 58 02/21/25 10:03 Resp 16 02/21/25 10:03 BP 134/80 02/21/25 10:03 Pulse Ox 98 02/21/25 10:03 Oxygen Delivery Method Room Air 02/21/25 10:03 BMI result Body Mass Index 29.2 Tobacco/Smoking Status: Tobacco use Status Tobacco use date assessed 02/21/25 02/21/25 10:35 Patient Tobacco Use Status Never used Tobacco 02/21/25 10:04 e-Cigarette/Vaping Use Never Used 02/21/25 10:04 PHQ-9: PHQ-9 Score PHQ-9: Total score 0 02/21/25 10:35 Depression Screening Interpretation: Negative Thrive Assessment: Date of Thrive Assessment Date Thrive assessed 09/22/24 02/21/25 10:04 Currently or been in a relationship where the following occur: No concerns reported Const General: no acute distress HENMO Head: Yes normal to inspection Face and sinus: Yes normal facial exam Throat: Yes posterior oropharynx normal Eyes General: appearance normal, both eyes and all related structures Neck Neck: Yes no lymphadenopathy and Yes supple Resp Effort & Inspection: normal respiratory effort Auscultation: clear to auscultation bilaterally Cardio Rhythm: regular rhythm Heart sounds: S1 normal heart sound present and S2 normal heart sound present GI Inspection: Yes normal to inspection Palpation (GI): Soft to palpation Percussion: Yes normal to percussion Auscultation: normal bowel sounds Coding Level of Care Code Est Pt Prev Care 40-64y(05472) Diagnoses Hyperlipidemia E78.5 HTN (hypertension) I10 Cutaneous lymphoma 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 Pope Code(s): C84.A0 - Cutaneous T-cell lymphoma, unspecified, unspecified site Category: Medical Plan: Follow-up with Hematology (4) Annual physical exam: Comment: Negative colonoscopy at age of 48 Code(s): Z00.00 - Encounter for general adult medical examination without abnormal findings Category: Medical Plan: Well-balanced diet regular physical activity discussed with the patient (5) History of glomerulonephritis: Comment: acute, nephrotic syndrome, 2017, follow-up with Nephrology every 6 months Code(s): Z87.448 - Personal history of other diseases of urinary system Category: Medical Plan: Follow-up with nephrology Orders: Orders Comprehensive Diamond. Panel Fast 1 Year E78.5 - Hyperlipidemia, unspecified, I10 - Essential (primary) hypertension, Z00.00 - Encounter for general adult medical examination without abnormal findings Complete Blood Count Auto Diff 1 Year E78.5 - Hyperlipidemia, unspecified, I10 - Essential (primary) hypertension, Z00.00 - Encounter for general adult medical examination without abnormal findings UA w Microscopic 1 Year E78.5 - Hyperlipidemia, unspecified, I10 - Essential (primary) hypertension, Z00.00 - Encounter for general adult medical examination without abnormal findings Lipid Panel 4 Months E78.5 - Hyperlipidemia, unspecified Lipid Panel 1 Year E78.5 - Hyperlipidemia, unspecified, I10 - Essential (primary) hypertension, Z00.00 - Encounter for general adult medical examination without abnormal findings PSA,Total (Free>4and<10) 1 Year E78.5 - Hyperlipidemia, unspecified, I10 - Essential (primary) hypertension, Z00.00 - Encounter for general adult medical examination without abnormal findings
--- OUTSIDE RECORDS SUMMARY | 2025-02-21 12:07 | XMS_ITS | Clinical Summary ---
Author Organization [facility] Address [address] [place] [address] Phone Care Team Providers Care Safety Admin Assistant Name Role Phone Maribel Garner MD Primary Care Provider [phone] Allergies No known active allergies Medications Multiple [...] Sigmoidoscopy 2017 Influenza Vaccine (#1) 2024 Insurance [facility] Care Teams Safety Admin Assistant Relationship Specialty Start Date End Date Maribel Garner MD [address] [place] [address] PCP - General 05/06/20
--- OUTSIDE RECORDS SUMMARY | 2025-02-21 12:07 | XMS_ITS | Clinical Summary ---
Author Organization [facility] Address [address] [place] [phone] Phone Care Team Providers Care Laborer Laboratory Name Role Phone Unknown, Unknown Primary Care Provider Nena lee Encounters Date Type Department Care Team Description 12/08/2024 9:52 AM EDT - 12/08/2024 11:59 PM EDT Hospital Encounter [facility] PATHOLOGY VIRTUAL DEPARTMENT [address] [place] [phone] Discharge Disposition: Home or Self Care [...] SEE NARRATIVE - 12/26/2024 11:38 [place] [address] Surgical Pathology Outside Consultation Patient Name: TRISTIN PAN : 1970 (Age: 54) Sex: M Location: [facility] Institution: [facility] Date of Reported: 12/26/2024 11:38 Results To: Paul Cifuentes MD FINAL PATHOLOGIC DIAGNOSIS: Consult materials received from [facility], [place], [place] on 12/06/24. A. SKIN, RIGHT TAOISM, EXCISION ([id number], A2; 11/29/24; [id number]): Atypical lymphoid infiltrate suggestive of primary cutaneous [...] at the outside laboratory and reviewed at [facility] reveal numerous CD20+ B cells throughout the [...] lymphoid follicles. Additional immunohistochemical stains performed at [facility] show that the BCL6+ BCL2- CD20+ lymphoid [...] skin lesion. SPECIMENS SUBMITTED: A: SKIN, RIGHT TAOISM, EXCISION ([id number], A2; 11/29/24; [id number]) SLIDE-BLOCK DESCRIPTION: Consult materials received from [place], [place] on 12/06/24. A. SKIN, RIGHT TAOISM, EXCISION ([id number], A2; 11/29/24; [id number]): Stained Slides: 8 Unstained slides: 0 Blocks: 0 Received from [place], [place] on 12/18/24. In addition to previously described material, 1 block, which are labeled [id number] A2 and corresponds to the accompanying pathology report bearing the patient's name. A. SKIN, RIGHT TAOISM, EXCISION ([id number], A2; 11/29/24; [id number]): Stained Slides: 0 Unstained slides: 0 Blocks: 1 Private Consultation Immunohistochemical and in-situ hybridization tests performed at [facility] have been developed and their performance characteristics determined by the Immunohistochemistry Laboratories in the Department of Pathology at [facility]. They have not been cleared or approved by the U.S.Food and Drug Administration (FDA); the FDA has determined that such clearance or approval is not necessary. Paul Cifuentes MD PATHOLOGY ORDERABLES Final Result SEE NARRATIVE * Anatomic Pathology (12/08/2024 12:00 AM EDT) [place] [address] Surgical Pathology Outside Consultation Patient Name: TRISTIN PAN : 1970 (Age: 54) Sex: M Location: [facility] Institution: [facility] Date of Reported: 12/26/2024 11:38 Results To: Paul Cifuentes MD FINAL PATHOLOGIC DIAGNOSIS: Consult materials received from [place], [place] on 12/06/24. A. SKIN, RIGHT TAOISM, EXCISION ([id number], A2; 11/29/24; [id number]): Atypical lymphoid infiltrate suggestive of primary cutaneous [...] at the outside laboratory and reviewed at [facility] reveal numerous CD20+ B cells throughout the [...] lymphoid follicles. Additional immunohistochemical stains performed at [facility] show that the BCL6+ BCL2- CD20+ lymphoid [...] skin lesion. SPECIMENS SUBMITTED: A: SKIN, RIGHT TAOISM, EXCISION ([id number], A2; 11/29/24; [id number]) SLIDE-BLOCK DESCRIPTION: Consult materials received from [place], [place] on 12/06/24. A. SKIN, RIGHT TAOISM, EXCISION ([id number], A2; 11/29/24; [id number]): Stained Slides: 8 Unstained slides: 0 Blocks: 0 Received from [place], [place] on 12/18/24. In addition to previously described material, 1 block, which are labeled [id number] A2 and corresponds to the accompanying pathology report bearing the patient's name. A. SKIN, RIGHT TAOISM, EXCISION ([id number], A2; 11/29/24; [id number]): Stained Slides: 0 Unstained slides: 0 Blocks: 1 Private Consultation Immunohistochemical and in-situ hybridization tests performed at [facility] have been developed and their performance characteristics determined by the Immunohistochemistry Laboratories in the Department of Pathology at [facility]. They have not been cleared or approved by the U.S.Food and Drug Administration (FDA); the FDA has determined that such clearance or approval is not necessary. [facility] Clinical History Changing skin lesion. [facility] Final Diagnosis Consult materials received from [place], [place] on 12/06/24.A. SKIN, RIGHT TAOISM, EXCISION ([id number], A2; 11/29/24; [id number]): Atypical lymphoid infiltrate suggestive of primary cutaneous [...] at the outside laboratory and reviewed at [facility] reveal numerous CD20+ B cells throughout the [...] lymphoid follicles. Additional immunohistochemical stains performed at [facility] show that the BCL6+ BCL2- CD20+ lymphoid [...] by Dr. Faviola Gómez, fellow in Dermatopathology. [facility] Slide-Block Description Consult materials received from [place], [place] on 12/06/24. A. SKIN, RIGHT TAOISM, EXCISION ([id number], A2; 11/29/24; [id number]): Stained Slides: 8 Unstained slides: 0 Blocks: 0 Received from [place] on 12/18/24. In addition to previously described material, 1 block, which are labeled [id number] A2 and corresponds to the accompanying pathology report bearing the patient's name. A. SKIN, RIGHT TAOISM, EXCISION ([id number], A2; 11/29/24; [id number]): Stained Slides: 0 Unstained slides: 0 Blocks: 1 [facility] Conversion Type 12/08/2024 9:54 AM EDT us Paul Cifuentes MD PATHOLOGY ORDERABLES Edited Result - Final [facility] [address] [place] [address] from Last 3 Months Insurance [facility] Care Teams Laborer Laboratory Relationship Specialty Start Date End Date Unknown, Unknown, PCP - General 02/19/17 Additional Source Comments The information contained in this document represents components of the legal health record. It is not the complete legal health record.[facility]
--- OUTSIDE RECORDS SUMMARY | 2025-02-21 12:08 | XMS_ITS | Clinical Summary ---
Author Organization [address] [place] [address] Address [address] [place] [address] Phone Care Team Providers Care Clinic Nurse Name Role Phone Maribel Garner MD Primary Care Provider [phone] Allergies No known active allergies Medications amLODIPine (NORVASC) 2.5 mg tablet Take 1 tablet (2.5 mg total) by mouth 1 (one) time each day. 10/31/2024 Active Active Problems Problem Noted Date Diagnosed Date Changing skin lesion 11/16/2024 Encounters Date Type Department Care Team Description 02/14/2025 8:23 AM EDT Hospital Encounter [facility] PET Scan [address] [place] [address] Primary cutaneous follicular center B-cell lymphoma ([facility]/HCC V24, [facility] V28) 02/08/2025 Telephone [facility] Radiation Oncology [address] [place] [phone] Jasmina Cortez MA 02/07/2025 Telephone [facility] Radiation Oncology [address] [place] [address] Jasmina Cortez MA 01/31/2025 1:00 PM EDT Office Visit [facility] Hematology Oncology [address] [place] [phone] All Pope MD Primary cutaneous follicular center B-cell lymphoma ([facility]/HCC V24, CMS/HCC V28) (Primary Dx) 12/06/2024 11:30 AM EDT Office Visit Plastic & Reconstructive Surgery [facility] [address] [facility] [address] [place] [address] Clif Garcia DO Changing skin lesion (Primary Dx) 11/29/2024 10:00 AM EDT Procedure visit [facility] & Reconstruct[facility] [place] [address] [facility] [address] [place] [address] Clif Garcia DO Changing skin lesion (Primary [...] file Travel History Travel Start Travel End [place] 01/21/2025 01/25/2025 Obstetrics History Last Filed Vital [...] Description 02/28/2025 10:15 AM EST Office Visit [facility] Hematology Oncology [address] [place] [phone] All Pope MD [address] [place] [phone] 03/08/2025 1:30 PM EST Appointment [facility] Radiation Oncology [address] [place] [phone] 03/08/2025 2:00 PM EST Appointment [facility] Radiation Oncology [address] [place] [address] Orlando Bliss MD [address] [place] [address] Health Maintenance Due Date Last Done Comments [...] 2024 01/23/2024, 02/07/2023, 03/19/2021, Additional history exists DTaP,Tdap,and Td Vaccines (2 - Td or Tdap) 05/20/2026 05/20/2016 Influenza Vaccine Completed 02/04/2025, , 02/07/2023, Additional history exists HIB Vaccines Aged Out [...] 11/29/2024 10:11 AM EDT Changing skin lesion from Last 3 Months Results * Flow cytometry (11/29/2024 10:11 AM EDT) Flow Cytometry Interpretation Skin, right anabaptist, flow cytometry: A limited (low cellularity) flow cytometric evaluation was performed. There is no monotypic B cell population identified. Most of the lymphocytes (approximately two thirds) are CD3-positive T cells without diagnostic phenotypic aberrancy. There is no discrete population of AO47-mylxwwdg blasts identified. See comment. Comment: The overall [...] skin excision is recommended. (See separate report, [id number], is recommended.) Please note that myeloid disorders cannot be reliably excluded by flow cytometry. Clinical correlation recommended. SPECIMEN: Face skin lesion ([id number]) VIABILITY: 84.5% TOTAL CELL YIELD: 0.7x106/mL IMMUNOPHENOTYPIC [...] 0.9% of total. There is no significant LP01-pfvlhnpn blast population seen. REVIEW OF CORTEZ-STAINED CYTOSPIN: The cytospin shows a predominance of small lymphocytes. Some larger lymphoid cells with irregular nuclear contours are noted. Rare cells with medium to large rounded nuclei with evenly dispersed chromatin and scant cytoplasm are noted.. Antibodies (17 markers): CD2, CD3, CD4, CD5, CD7, CD8, CD10, CD19, CD20, CD34, CD38, CD45, CD56, CD200, [place], Lambda, TCR??. 12/01/2024 3:09 PM EDT [facility] Disclaimer This test was developed and [...] clinical laboratory testing. 12/01/2024 3:09 PM EDT [facility] Tissue Face structure / Unknown Non-blood Collection / Unknown 11/29/2024 10:11 AM EDT 11/29/2024 11:13 AM EDT Clif Garcia DO LAB BLOOD ORDERABLES Final R esult [facility] [address] [place] [address], * Tissue exam (11/29/2024 10:11 AM EDT) Correction History Report amended to reflect teamcenter consultant diagnosis. (Original diagnosisis retained in italics.) Dr. Martín Garcia is notified of the amended report by Dr. Gopal Cifuentes via secure text on 12/27/2024 at 8:11 a.m. 8:16 AM EDT [facility] Addendum This addendum was created in error. See amended report. 8:16 AM EDT [facility] Addendum electronically signed by Paul Cifuentes MD on 12/26/2024 at 12:58 PM Final Diagnosis NOTE: THIS REPORT IS AMENDED TO REFLECT THE RESULT OF A SECOND OPINION REGARDING THE NATURE OF THIS LYMPHOID INFILTRATE FROM DR. ESME STEWART AT [facility]. (The text of the original report is retained below in italics.) [facility]AL [facility] DIAGNOSIS: A. SKIN, RIGHT EPISCOPAL, EXCISION ([id number], A2; 11/29/24; [id number]): Atypical lymphoid infiltrate suggestive of primary cutaneous [...] at the outside laboratory and reviewed at [facility] reveal numerous CD20+ B cells throughout the [...] lymphoid follicles. Additional immunohistochemical stains performed at [facility] show that the BCL6+ BCL2- CD20+ lymphoid [...] file) Original report diagnosis follows: Skin, right anabaptist, excision: - Dense B cell-rich lymphoid infiltrate [...] form of cutaneous lymphoproliferative disorder. Skin, right anabaptist, flow cytometry ([id number]): No monotypic B cell population is identified. Most of the lymphocytes (approximately two thirds) are CD3-positive T cells without diagnostic phenotypic aberrancy. There is no discrete population of YP78-qeelzaro blasts identified. See comment. Comment: The overall [...] skin excision is recommended. (See separate report, [id number], is recommended.) Please note that myeloid disorders cannot be reliably excluded by flow cytometry. Clinical correlation recommended. SPECIMEN: Face skin lesion ([id number]) VIABILITY: 84.5% TOTAL CELL YIELD: 0.7x106/mL IMMUNOPHENOTYPIC [...] 0.9% of total. There is no significant WJ16-bzqutypf blast population seen. REVIEW OF CORTEZ-STAINED CYTOSPIN: The cytospin shows a predominance of small lymphocytes. Some larger lymphoid cells with irregular nuclear contours are noted. Rare cells with medium to large rounded nuclei with evenly dispersed chromatin and scant cytoplasm are noted.. Antibodies (17 markers): CD2, CD3, CD4, CD5, CD7, CD8, CD10, CD19, CD20, CD34, CD38, CD45, CD56, CD200, [place], Lambda, TCR??. 5 8:16 AM EDT [facility] Amendment electronically signed by Paul Cifuentes MD on 12/27/2024 at 8:16 AM Comment:Corrected result: Pr eviously reported on 12/26/2024 at 1258 EDT. Comment Water Jet Loom Fixer slide(s) from this case have been presented at Anatomic Pathology Intradepartmental Review Conference on 11/30/24. 5 8:16 AM EDT [facility] Clinical Information Changing skin lesion (L98.9) 5 8:16 AM EDT [facility] Gross Description A. Face, excision lesion right anabaptist ink ar 12: Labeled face . Received [...] is placed in RPMI and submitted to [place], [place], flow cytometry lab, for flow cytometric studies. The balance of the specimen is submitted in two cassettes. 1-12 and 6 o'clock tips, two pieces 2-central sections, five pieces TS 5 8:16 AM EDT [facility] Disclaimer NOTE: The immunohistochemical tests and in situ hybridization tests were developed and their performance characteristics were determined by [facility]ology [facility]. They have not been cleared [...] and paraffin embedded. 5 8:16 AM EDT [facility] Tissue Face structure / Unknown Non-blood Collection / Unknown 11/29/2024 10:11 AM EDT 11/29/2024 10:12 AM EDT us Clif Garcia DO LAB PATHOLOGY ORDERABLES Jaycob leo Result - Final [facility] [address] [place] [address], from Last 3 Months [facility] Care Teams Clinic Nurse Relationship Specialty Start Date End Date Maribel Garner MD [address] [place] [phone] PCP - General Internal Medicine 11/09/24
== END 2025-02-21 11:21 | disposition home or self-care (01) ==
LOC: HO.HMCC 10:01
PROVIDERS: PCP Internal Medicine; Visit Provider Internal Medicine
DX: Z00.00 Encounter for general adult medical examination without abnormal findings (principal); C84.A0 Cutaneous T-cell lymphoma, unspecified, unspecified site; E78.5 Hyperlipidemia, unspecified; I10 Essential (primary) hypertension; Z87.448 Personal history of other diseases of urinary system